=== PATIENT | female | born 1960 | race Caucasian/White ===

== ENCOUNTER → 2023-05-17 08:37 | Day surgery (SDC) | payer BC, SELFPAY ==
[2023-04-19 07:25] VITALS: BMI 36.0
--- NOTE | 2023-04-19 07:33 | HPS.HSE ---
Family Physician
-
Family Physician: Sarah Beth Brandt
Chief Complaint
-
Paroxysmal atrial fibrillation.
History of Present Illness
The patient is a 62-year-old female presenting today for paroxysmal atrial fibrillation. The patient reports palpitations and shortness of breath when in atrial fibrillation. She has undergone pulmonary vein isolation in March 2021 and
five previous cardioversions for her arrhythmia. The last cardioversion was attempted in March 2023. She is currently on pharmacological therapy with Amiodarone, Diltiazem, and Metoprolol. She is on Xarelto for oral anticoagulation. She notes
that she does not favor being on the pharmacological therapy for her atrial fibrillation buttermaker. She is interested in pursuing pulmonary vein isolation again for further arrhythmia management. She denies any current complaints today such as chest
pain, shortness of breath at rest, nausea, vomiting, diarrhea, lightheadedness, dizziness, cough, sore throat, or fever.
�
Medical History
Past Medical History
Past Medical History: Reports Other
Additional Past Medical History:
1. Paroxysmal atrial fibrillation, status post pulmonary vein isolation, 03/2021, and cardioversion x5; medical therapy with Amiodarone, Diltiazem, and Metoprolol, oral anticoagulation with Xarelto.
2. Nonsustained ventricular tachycardia 02/2020.
3. First-degree AV block.
4. Hypertrophic cardiomyopathy, greater than 2 cm wall thickness; status post ICD 11/2020.
5. Mild-moderate coronary artery calcifications.
6. Mild valvular disease.
7. Asthma, mild and intermittent.
8. Obstructive sleep apnea, compliant with CPAP.
9. GERD.
10. Hiatal hernia.
11. Remote duodenal ulcer.
12. Hypertrophic and adenomatous colon polyps.
13. Multilevel degenerative disc disease.
14. Osteoarthritis, status post bilateral total hip arthroplasty 2019.
15. Anxiety.
16. Depression.
17. Shingles 11/2015.
19. Obesity, BMI 36.0; status post bariatric surgery.
20. History of tobacco abuse.
21. Daily alcohol.
Past Surgical History: Reports Other
Additional Past Surgical History:
1. Pulmonary vein isolation.
2. Cardioversion x5.
3. ICD placement.
4. Left total hip arthroplasty.
5. Right total hip arthroplasty.
6. Left knee arthroscopy.
7. Bariatric surgery.
8. Right carpal tunnel release.
9. Uterine ablation.
10. Appendectomy.
Social History
Tobacco: Former Smoker (Former 1 pack per day cigarette smoker who quit tobacco products altogether 7 years ago. )
Alcohol: Daily (Reports, on average, 1-2 glasses of wine daily. )
Personal:
Living: Other (She lives with her in a 2 story home. )
Family History
Family History: Not pertinent
Allergies / Home Medications
Allergy/Medication List:
Home medications:
1. Acetaminophen 1300 mg p.o. three times a day as needed.
2. Amiodarone 200 mg p.o. daily at 2 PM.
3. Oyster shell calcium 1000 mg p.o. twice a day.
4. Citalopram 40 mg p.o. daily.
5. Devron 200 mg p.o. three times a day.
6. Diltiazem 360 mg p.o. daily at 2 PM.
7. Iron and Vitamin C 1 capsule p.o. daily at 2 PM.
8. Levothyroxine 100 mcg p.o. daily.
9. Metoprolol Succinate 100 mg p.o. twice a day.
10. Multivitamin 1 tablet p.o. three times a day.
11. Omeprazole 40 mg p.o. daily.
12. Xarelto 20 mg p.o. at bedtime.
Allergies: Bacitracin
Review of Systems
-
A 12 point ROS was completed and negative except as noted: Yes
Physical Exam
Vital Signs
Blood pressure 136.82. Heart rate 62. Respirations 18. Pulse ox 97% on room air.
Height 5 feet, 3 inches. Weight 92.2 kg. BMI 36.0.
Physical Exam
General: Well Developed, Well Nourished and No Apparent Distress
HEENT: NormoCephalic, Moist mucous membranes, Atraumatic and PERRLA
Respiratory: Clear
Cardiac: Irregular Rhythm
GI: Soft, Non Tender and Non Distended
Musculoskeletal: Normal Gait & Station
Skin: Warm and Dry
Neuro: AO x 3 and Nonfocal/grossly intact
Laboratory Results
-
DIAGNOSTIC STUDIES as of 04/19/2023: White blood cell count 6.7. Hemoglobin 13.9. Platelet count 283. PT 14.7. INR 1.12. Sodium 138. Potassium 4.5. BUN 15. Creatinine 0.7. Glucose 114. Calcium 9.4. Magnesium 2.1. AST 35. ALT 27. Albumin 4.1. Type
and screen O positive.
EKG 04/19/2023: Atrial paced rhythm. ST and T wave abnormality, consider lateral ischemia.
Chest CT 03/19/2021: Short-segment common vestibule for the left superior and inferior pulmonary veins, fairly commonly seen and considered normal variant. No evidence for left atrial thrombus.
�
Transesophageal echocardiogram 12/22/2020: Ejection fraction is 60%. Left ventricular hypertrophy, more prominent at the septum, with septal wall thickening measuring 1.8-2 cm and posterior wall 1.2 cm. No obvious LVOT tract obstruction. Normal left
atrial appendage. No thrombus detected in the left atrial appendage. Mildly thickened mitral valve with trivial to mild mitral regurgitation. Aortic valve is mildly thickened. Tricuspid valve with mild tricuspid regurgitation.
�
Stress echo 12/08/2015: No evidence of ischemia at 8 METS.
Impression/Plan
-
IMPRESSION/PLAN:
1. Paroxysmal atrial fibrillation: The patient is in need of pulmonary vein isolation with Dr. Bryan Smith on 05/17/2023. The benefits and risks of the procedure have been explained to the patient. The patient understands these risks and wishes to
proceed. She will not be required to undergo a pre-procedural transesophageal echocardiogram as she has been compliant with her home oral anticoagulation. She is aware that the last dose of her home Xarelto will be the night prior to her upcoming
procedure.
�
[2023-04-19 08:03] LABS: % Basophils 0.6 % (0-2); % Eosinophils 2.4 % (0-6); % Immature Granulocytes 0.9 % (0-0.5); % Lymphocytes 30.7 % (20.5-51.1); % Monocytes 7.6 % (1.7-9.3); % Neutrophils 57.8 % (42.2-75.2); Absolute Eosinophils 0.2 10^3/uL (0-0.7); Absolute Immature Granulocytes 0.1 10^3/uL (0-0.05); Absolute Lymphocytes 2.1 10^3/uL (1.2-3.4); Absolute Monocytes 0.5 10^3/uL (0.1-0.6); Absolute Neutrophils 3.9 10^3/uL (1.4-6.5); Hematocrit 39.6 % (37.0-47.0); Hemoglobin 13.9 g/dL (12.0-16.0); Mean Corp Hgb Conc. 35.1 g/dL (33.0-37.0); Mean Corpuscular Hgb 32.6 pg (27.0-31.0); Mean Corpuscular Volume 92.7 fL (81.0-99.0); Mean Platelet Volume 10.1 fL (7.4-10.4); Nucleated Red Blood Cells % 0 %; Platelet Count 283 10^3/uL (130-400); Red Blood Cell Count 4.27 10^6/uL (4.20-5.40); Red Cell Dist. Width 11.9 % (11.5-14.5); White Blood Cell Count 6.7 10^3/uL (4.8-10.8)
[2023-04-19 08:13] LABS: INR 1.12; PT 14.7 Sec (11.4-14.6)
[2023-04-19 08:19] LABS: ALT (SGPT) 27 U/L (0-35); AST (SGOT) 35 U/L (14-36); Albumin 4.1 g/dl (3.5-5.0); Alkaline Phosphatase 83 U/L (38-126); Blood Urea Nitrogen 15 mg/dl (7-17); Calcium 9.4 mg/dl (8.4-10.2); Carbon Dioxide 26 mmol/L (22-30); Chloride 101 mmol/L (98-107); Estimated Creatinine Clearance 90 ml/min; Glucose 114 mg/dl (70-99); Magnesium 2.1 mg/dl (1.6-2.3); Potassium 4.5 mmol/L (3.5-5.1); Sodium 138 mmol/L (135-145); Total Bilirubin 0.7 mg/dl (0.2-1.3); Total Protein 6.6 g/dl (6.3-8.2); eGFR > 60.00
[2023-05-17] VITALS (19 sets, daily range): BP systolic 85–132; BP diastolic 47–91
[2023-05-17 12:10] LABS: ACT-LR - POC 305 Seconds (116-155)
[2023-05-17 12:29] LABS: ACT-LR - POC 303 Seconds (116-155)
[2023-05-17 12:54] LABS: ACT-LR - POC 313 Seconds (116-155)
--- NOTE | 2023-05-17 14:01 | ITS.CL.ABL ---
Senior System Operator - Ablation
Ablation
Procedure Report:
ELECTROPHYSIOLOGY ABLATION STUDY
DATE:: 06/15/2023 REFERRING: Dr. Stevenson Hollis
INDICATION: Paroxysmal supraventricular tachycardia in the form of atrial fibrillation and atypical atrial flutter
HISTORY: See H and P. As above
ANTIARRHYTHMIC DRUG: Amiodarone
PRE-PROCEDURE RAÚL: No atrial thrombus
PRESENTING RHYTHM: Atypical atrial flutter confirmed to be a [id number] spinning around the left inferior pulmonary vein and transitioning to sitting around the right superior pulmonary vein utilizing each darek as a isthmus
'TIME-OUT': called and confirmed.
SEDATION/ANESTHESIA: provided via the anesthesia department using general anesthesia (LMA).
INTRAVENOUS/ARTERIAL ACCESS:
Right femoral venous - 8Fr
Left femoral venous - 8 Fr, 6 Fr
Ultrasound guidance for bilateral femoral vein access was utilized by me to obtain access with demonstration of normal anatomy
CHADS-VASC Score:
HAS-Bled Score
PROCEDURE:
1. A decapolar CS catheter was placed within the CS for mapping and pacing. This was also used as the reference catheter for the 3-D map. 2 separate tachycardia cycle length were noted with different CS activations. 390 ms with an eccentric
activation and for 10 ms with a proximal distal coronary sinus activation. The patient transitioned from 1 flutter to the next escalated below. Initial activation mapping of the 390 ms atrial flutter with the entire cycle length around the left
inferior pulmonary vein entrain from this region with the mitral isthmus, proximal coronary sinus, and left atrial posterior wall towards the right pulmonary veins out of the circuit. Entrainment demonstrated PPI equal to tachycardia cycle length
through the darek of the left veins and involving the inferior portion of posterior wall portion of left inferior pulmonary vein. Ablation at the anterior darek and through the inferior pulmonary vein of the left transition tachycardia to 410 ms
tachycardia to with the proximal to distal coronary sinus activation and there was a stable cycle length. Entrainment from the mitral isthmus, and area outside the left inferior pulmonary vein was now out of the circuit. Entrainment demonstrated
the second tachycardia to be encircling the right superior pulmonary vein with PPI equal to tachycardia cycle length and the entire cycle length with in and about the right severe pulmonary vein. Ablating at the darek of the right superior
pulmonary vein and the tachycardia terminated and the remainder of the posterior wall and right supra pulmonary veins were isolated. Entrance and exit block was confirmed in all 4 pulmonary veins and entrance
Was confirmed in the posterior wall of the left atrium.
2. The intracardiac ultrasound catheter was positioned in the RA to identify the FO for targeting of transseptal puncture, assist in identification of the pulmonary vein ostia, monitoring pre and post ablation pulmonary vein flow velocities,
monitoring for 'bubble' formation during RF application as a sign of thermal injury, and to monitor for pericardial effusion during mapping and ablation procedure. Left atrial size, LV ejection fraction, and pulmonary vein flows were monitored
pre and post ablation procedure. The other valves were inspected and found to be free of significant regurgitation or stenosis.
3. Half of the calculated heparin bolus was administered prior to the first transeptal puncture. Transseptal puncture was performed to diagnose RA and LA pressure so that safety of LA mapping and ablation could be further assessed, and to access
the left atrium and pulmonary veins for mapping and ablation. This entailed advancing an 10 [place] Agilis with dilator into the superior vena cava and withdrawing both (monitoring intracardiac ultrasound, fluoroscopy and tip pressure) with the tip
oriented toward the atrial septum. The fossa ovalis was engaged (indicated by sudden displacement of the sheath tip as well as tenting of the fossa seen on intracardiac ultrasound). Left atrial access required a pass with the [place] needle
extended. Left atrial catheter position was confirmed by pressure monitoring (RA mean pressure 8 mm Hg and LA mean presure 14 mm Hg), LA saturation (99%), as well as fluoroscopy. The sheath was advanced over the dilator and positioned in the left
atrium. This procedure was repeated for the Agilis sheath. The remainder of the calculated heparin bolus was administered and heparin was
infused to maintain ACT at 300 -350 seconds throughout the case.
4. RA pacing was performed via the proximal decapolar poles and LA pacing was performed via the distal decapolr poles.
5. A quadrapolar catheter was first positioned at the His position for His Bundle recording which was tagged via the 3-D Navex sytem, and then passed to the RVA for RV pacing and recording.
6. The 4 mm tactic cath and multipolar catheter placed in each of the LIPV, LSPV, RSPV and the RIPV. There was chronic reconnection at the darek and the anterior aspect of the left inferior pulmonary vein and the septal darek of the right
superior pulmonary vein. Each darek was utilized as an isthmus for separate flutters 1 circumferential on the left inferior pulmonary vein and 1 circumferential around the right supra pulmonary vein with cycle length 390 ms for the left inferior
pulmonary vein and for 10 ms for the right superior pulmonary vein.
7. Next, a 3-D map was created using Navex. A 3-D reconstructed CT image was compared to the 3-D Navex map to assist in anatomic interpretation, mapping and ablation. The CT image and the NavX image were fused.
8. The pulmonary veins at the left inferior pulmonary vein and right supra pulmonary vein were isolated each darek at 30 W, 42 degrees, 10 to 15-second lesions at a 10 to 20 g force. Extrapulmonary vein lesions for atrial fibrillation were
delivered outside the left inferior pulmonary vein on the posterior wall as well as at the base of the ligament of Wilbert. We then targeted 2 separate flutters spitting through the posterior wall and to reach darek as delineated above with
termination of the second atrial flutter cycling for 10 ms at the darek of the right superior pulmonary vein. This was performed after transition from the initial atrial flutter spinning around the left inferior pulmonary veins. After entrance
next block was confirmed in the posterior wall plus all 4 pulmonary veins EP study did not demonstrate any inducible tachyarrhythmias.
9. Normal sinus node and AV martha function were noted. The patient's defibrillator was turned off for the procedure and then turned back to on with stable and consistent device settings at AAIR�DDDR 50-130 beats a minute and device therapies in
the VF and VT zones were turned back on.
TOTAL FLOURO TIME: 17 minutes 137 mGy
TOTAL RF DURATION: 22 minutes
REVERSAL OF HEPARIN: 35 mg of protamine, slow IV administration
COMPLICATIONS:
None
Intracardiac US shows no pericardial effusion post ablation.
SUMMARY:
Complex left atrial mapping and ablation.
Reisolation of the left inferior pulmonary vein and right supra pulmonary veins as above. Isolation of the left atrial posterior wall as above. Targeting of 2 separate atrial flutters 1 encircling the left inferior pulmonary vein through the
darek and 1 encircling the right superior pulmonary vein through the darek. Tachycardia 1 through the left inferior pulmonary vein transitioned to tachycardia to after isolation of the left inferior pulmonary vein and tachycardia to was
terminated with ablation and isolation of the right superior pulmonary vein.
RECOMMENDATIONS:
1. Admit to monitored bed.
2. Resume anticoagulation
3. Vascade system was performed with closure and out of bed 2 hours
4. Consider same-day discharge
Copy to: Dr. Stevenson Hollis
[2023-05-17] MEDS: ANESTHETIC LOZENGE 1 LOZENGE PO (14:28)
--- NOTE | 2023-05-17 16:25 | W.PN.UPDATE ---
Update Note
Progress Note Update
Pt seen post PVI. Bilat vascade closure with no HT/bleeding, non tender. OOB to chair/bathroom. Post EKG NSR w/1st deg AVB, no acute changes. Resume Xarelto tonight. Discontinue amiodarone and decreased diltiazem to 240mg daily, continue toprol as
before. Followup with Dr. Smith as scheduled. Home today if groin site/tele remain stable.
== END | disposition home or self-care (01) ==
LOC: CATH 08:37
PROVIDERS: ATTENDING PHYSICIAN Internal Medicine Cardiovascular Disease; FAMILY PHYSICIAN Internal Medicine
DX: I48.0 Paroxysmal atrial fibrillation (principal); Z79.01 Long term (current) use of anticoagulants; R00.2 Palpitations; R06.02 Shortness of breath; I44.0 Atrioventricular block, first degree; I42.2 Other hypertrophic cardiomyopathy; I25.84 Coronary atherosclerosis due to calcified coronary lesion; I25.10 Atherosclerotic heart disease of native coronary artery without angina pectoris; J45.909 Unspecified asthma, uncomplicated; G47.33 Obstructive sleep apnea (adult) (pediatric); K21.9 Gastro-esophageal reflux disease without esophagitis; K44.9 Diaphragmatic hernia without obstruction or gangrene; Z87.11 Personal history of peptic ulcer disease; Z86.010 Personal history of colon polyps; M19.90 Unspecified osteoarthritis, unspecified site; F32.A Depression, unspecified; F41.9 Anxiety disorder, unspecified; E66.9 Obesity, unspecified; Z68.36 Body mass index [BMI] 36.0-36.9, adult; Z87.891 Personal history of nicotine dependence; Z95.810 Presence of automatic (implantable) cardiac defibrillator; Z98.84 Bariatric surgery status
CPT/HCPCS: C1732; C1894; C1730; C1769; C1766; C2630; C1892; C1759; 36415; 76937; 80053; 83735; 85025; 85347; 85610; 86850; 86900; 86901; 93005; 93655; 93656; C1760

== ENCOUNTER → 2023-05-23 09:12 | Outpatient (REF) | payer BC, SELFPAY ==
[2023-05-23 09:56] LABS: % Basophils 0.4 % (0-2); % Eosinophils 1.6 % (0-6); % Immature Granulocytes 0.8 % (0-0.5); % Lymphocytes 19.7 % (20.5-51.1); % Monocytes 8.6 % (1.7-9.3); % Neutrophils 68.9 % (42.2-75.2); Absolute Eosinophils 0.1 10^3/uL (0-0.7); Absolute Immature Granulocytes 0.1 10^3/uL (0-0.05); Absolute Lymphocytes 1.5 10^3/uL (1.2-3.4); Absolute Monocytes 0.7 10^3/uL (0.1-0.6); Absolute Neutrophils 5.3 10^3/uL (1.4-6.5); Hematocrit 37.8 % (37.0-47.0); Hemoglobin 13.1 g/dL (12.0-16.0); Mean Corp Hgb Conc. 34.7 g/dL (33.0-37.0); Mean Corpuscular Hgb 32.3 pg (27.0-31.0); Mean Corpuscular Volume 93.3 fL (81.0-99.0); Mean Platelet Volume 10.4 fL (7.4-10.4); Nucleated Red Blood Cells % 0 %; Platelet Count 293 10^3/uL (130-400); Red Blood Cell Count 4.05 10^6/uL (4.20-5.40); White Blood Cell Count 7.7 10^3/uL (4.8-10.8)
[2023-05-23 10:31] LABS: ALT (SGPT) 21 U/L (0-35); AST (SGOT) 29 U/L (14-36); Alkaline Phosphatase 82 U/L (38-126); Blood Urea Nitrogen 12 mg/dl (7-17); Calcium 9.1 mg/dl (8.4-10.2); Carbon Dioxide 27 mmol/L (22-30); Chloride 102 mmol/L (98-107); Direct Bilirubin 0.5 mg/dl (0.0-0.4); Glucose 113 mg/dl (70-99); HDL Cholesterol 78 mg/dl; Iron 143 ug/dl (37-170); LDL Cholesterol, Calculated 86 mg/dl; Magnesium 2.1 mg/dl (1.6-2.3); Sodium 135 mmol/L (135-145); Total Cholesterol 181 mg/dl (50-199); Total Protein 6.5 g/dl (6.3-8.2); Triglyceride 85 mg/dl (10-149); Very Low Density Lipoprotein 17 mg/dl (0-30); eGFR > 60.00
[2023-05-23 10:49] LABS: Vitamin D, 25-OH*** 52.1 ng/mL (30-80)
[2023-05-23 10:53] LABS: Intact PTH 135.5 pg/ml (13.6-85.8)
[2023-05-23 11:38] LABS: Folate > 20.0 ng/ml (2.76-20); Vitamin B12 > 1000 pg/ml (239-931)
[2023-05-25 08:51] LABS: Zinc 46.3 ug/dL (60.0-120.0)
[2023-05-26 11:09] LABS: Alpha-Tocopherol 10.4 mg/L (5.5-18.0); Gamma-Tocopherol 0.5 mg/L (0.0-6.0); Retinyl Palmitate 0.04 mg/L (0.00-0.10); Vitamin A (Retinol) 0.85 mg/L (0.30-1.20); Xitamin A Interpretation Normal
[2023-05-26 16:28] LABS: Vitamin B1, Whole Blood 213 nmol/L (70-180)
== END ==
LOC: REG 09:12
PROVIDERS: ATTENDING PHYSICIAN Nurse Practitioner; FAMILY PHYSICIAN Internal Medicine
DX: E66.9 Obesity, unspecified (principal); K90.49 Malabsorption due to intolerance, not elsewhere classified; Z98.84 Bariatric surgery status
CPT/HCPCS: 36415; 80053; 80061; 82248; 82306; 82607; 82728; 82746; 83540; 83735; 83970; 84425; 84446; 84590; 84630; 85025

== ENCOUNTER → 2023-05-23 13:36 | Outpatient (REF) | payer BC, SELFPAY | LOC: RAD 13:36 | PROVIDERS: ATTENDING PHYSICIAN Internal Medicine Cardiovascular Disease; FAMILY PHYSICIAN Internal Medicine | DX: S30.1XXA Contusion of abdominal wall, initial encounter (principal); I72.9 Aneurysm of unspecified site | CPT/HCPCS: 93926 ==

== ENCOUNTER → 2023-06-21 08:33 | Outpatient (REF) | payer BC, SELFPAY ==
[2023-06-21 14:09] LABS: tTG IgA Antibody 4.5 EU/ml (0-19); tTG IgG Antibody 11.3 EU/ml (0-19)
[2023-06-22 05:46] LABS: IgA 132 mg/dl (70-400)
[2023-06-22 15:13] LABS: H. pylori Breath Test Negative (Negative)
[2023-06-23 13:27] LABS: Fat, Fecal - Neutral Normal (Normal); Fat, Fecal - Split Increased (Normal)
[2023-06-23 21:35] LABS: Endomysial IgA Antibody Titer <1:10 (<1:10)
[2023-06-24 01:57] LABS: H. pylori Antigen, Fecal Negative (Negative)
== END ==
LOC: REG 08:33
PROVIDERS: ATTENDING PHYSICIAN Internal Medicine Gastroenterology; FAMILY PHYSICIAN Internal Medicine
DX: R11.2 Nausea with vomiting, unspecified (principal)
CPT/HCPCS: 36415; 82705; 82784; 83013; 83516; 86231; 87338; 89055

== ENCOUNTER → 2023-07-12 06:55 | Outpatient (REF) | payer BC, SELFPAY | LOC: RAD 06:55 | PROVIDERS: ATTENDING PHYSICIAN Internal Medicine Gastroenterology; FAMILY PHYSICIAN Internal Medicine | DX: K76.0 Fatty (change of) liver, not elsewhere classified (principal) | CPT/HCPCS: 76700 ==

== ENCOUNTER → 2023-07-14 06:31 | Day surgery (SDC) | payer BC, SELFPAY | LOC: GI 06:31 | PROVIDERS: ATTENDING PHYSICIAN Internal Medicine Gastroenterology; FAMILY PHYSICIAN Internal Medicine | DX: Z86.010 Personal history of colon polyps (principal); K52.9 Noninfective gastroenteritis and colitis, unspecified; K57.30 Diverticulosis of large intestine without perforation or abscess without bleeding; D12.3 Benign neoplasm of transverse colon; D12.7 Benign neoplasm of rectosigmoid junction; R10.13 Epigastric pain; K44.9 Diaphragmatic hernia without obstruction or gangrene; K31.89 Other diseases of stomach and duodenum; Z98.84 Bariatric surgery status; R11.0 Nausea; K29.50 Unspecified chronic gastritis without bleeding; K22.89 Other specified disease of esophagus | CPT/HCPCS: 45385; 45380; 43239; 88305; 88342 ==

== ENCOUNTER 2023-08-11 06:11 | Day surgery (SDC) | payer BC, SELFPAY ==
[2023-08-11] VITALS (13 sets, daily range): BP systolic 117–146; BP diastolic 66–90; BMI 32.8
[2023-08-11] MEDS: TYLENOL 1000 MG PO (08:21)
[2023-08-11] MEDS: NORMOSOL-R 1000 IV (08:22)
--- NOTE | 2023-08-11 09:45 | W.SUR.PREOP ---
Pre-Operative Surgical Note
-
I have examined this patient prior to the performance of the scheduled procedure.
The patient's condition is unchanged from the time of the current History and
Physical and the patient is able to undergo the scheduled procedure.
--- NOTE | 2023-08-11 11:12 | W.IMMPOSTOP ---
Addendum entered and electronically signed by Roc Fried MD 08/11/23 11:25:
#[id number]
Original Note:
Surgical Immed Post Op Note
-
Primary Surgeon: Corky
Assisting Surgeon: Katerina Chapman PA-C
Pre-op Diagnosis: Chronic calculus cholecystitis
Post-op Diagnosis: Chronic calculus cholecystitis
Procedure Performed: Laparoscopic cholecystectomy with intraoperative cholangiogram
Anesthesia Type: GETA +0.25% Marcaine
Specimen / Cultures: Gallbladder
Estimated Blood Loss: 4 mL
Complications: None immediate
Operative Findings: Physiologically distended gallbladder, few filmy adhesions. Cystic duct identified and controlled with clips as well as main anterior cystic artery and a posterior cystic artery branch traveling along the posterior wall of the
gallbladder. Intraoperative cholangiogram normal, aberrant right posterior hepatic duct seen on cholangiography. No adhesions encountered from history of laparoscopic duodenal switch bariatric surgery
The assistance of Katerina Chapman PA-C was required due to the complexity of the procedure. During the procedure Katerina Chapman PA-C assisted with retraction, cholecystectomy, and closure of the wound.
updated via phone call postoperatively
[2023-08-11] MEDS: ZOFRAN 4 MG IV (11:37)
[2023-08-11] MEDS: COMPAZINE 5 MG IV (11:52)
== END 2023-08-11 14:33 | disposition home or self-care (01) ==
LOC: SDS 06:11
PROVIDERS: ATTENDING PHYSICIAN Surgery
DX: K80.10 Calculus of gallbladder with chronic cholecystitis without obstruction (principal)
CPT/HCPCS: 47563; 88304; 74300; 76000; A4300

== ENCOUNTER 2023-08-13 16:23 | Inpatient (IN) | payer BC, SELFPAY ==
[2023-08-13 11:37] VITALS: BP 181/102
[2023-08-13 12:09] LABS: % Basophils 0.1 % (0-2); % Lymphocytes 8.2 % (20.5-51.1); % Monocytes 8.3 % (1.7-9.3); % Neutrophils 82.4 % (42.2-75.2); Absolute Immature Granulocytes 0.1 10^3/uL (0-0.05); Absolute Neutrophils 9.9 10^3/uL (1.4-6.5); Hematocrit 36.2 % (37.0-47.0); Hemoglobin 12.5 g/dL (12.0-16.0); Mean Corp Hgb Conc. 34.5 g/dL (33.0-37.0); Mean Corpuscular Hgb 32.4 pg (27.0-31.0); Mean Corpuscular Volume 93.8 fL (81.0-99.0); Mean Platelet Volume 10.8 fL (7.4-10.4); Nucleated Red Blood Cells % 0 %; Platelet Count 221 10^3/uL (130-400); Red Blood Cell Count 3.86 10^6/uL (4.20-5.40); Red Cell Dist. Width 11.7 % (11.5-14.5)
[2023-08-13 12:17] LABS: ALT (SGPT) 32 U/L (0-35); AST (SGOT) 37 U/L (14-36); Albumin 4.1 g/dl (3.5-5.0); Alkaline Phosphatase 74 U/L (38-126); Blood Urea Nitrogen 13 mg/dl (7-17); Calcium 9.4 mg/dl (8.4-10.2); Carbon Dioxide 28 mmol/L (22-30); Chloride 100 mmol/L (98-107); Glucose 162 mg/dl (70-99); Sodium 133 mmol/L (135-145); Total Bilirubin 1.1 mg/dl (0.2-1.3); Total Protein 6.5 g/dl (6.3-8.2); eGFR > 60.00
[2023-08-13 12:49] VITALS: BP 165/96
--- NOTE | 2023-08-13 12:51 | ED.GENMED ---
History of Present Illness
General
Chief Complaint: Breathing Problem
Source: patient and spouse
Time Seen by Provider: 08/13/23 12:37
Travel History
Have you had any contact with someone who has COVID-19?: No
Do you have any symptoms of coronavirus? Fever > 100 degrees, chills, cough, shortness of breath, sore throat, loss of taste or smell, muscle aches, or headache?: No
History of Present Illness
History of Present Illness:
62-year-old female with past medical history of atrial fibrillation, hypertrophic cardiomyopathy, hypertension, status post elective cholecystectomy 2 days ago presenting to the emergency department for evaluation of persistent nausea and vomiting,
shortness of breath, cough with blood-tinged sputum over the last 24 to 36 hours. Patient reports that immediately following surgery following extubation she was persistently nauseous and vomiting which has not gotten any better over the last 48
hours despite oral Compazine at home. Since yesterday she started to feel short of breath with the coughing and blood-tinged sputum which she thought was may be just related to being intubated. She is unaware of any fevers but is denying any
chills, rigors, chest pain, palpitations, diaphoresis, lower extremity edema. Patient is on Xarelto due to a history of atrial fibrillation stopped taking this as of Monday for the surgery and is not supposed to resume the medication until
tomorrow.
Past History
Past History
ED Past Medical History: Arrthythmia, Asthma, CHF, Hypothyroidism and Psychiatric
ED Past Surgical History: Appendectomy, Cardiac, Cholecystectomy, Gynecological and Other
Social History
Tobacco: Former smoker
Alcohol: Former
Drug: None
Personal:
Living: with family
Employment: Employed
Family History
Family History: Negative Sudden
Review of Systems
Review of Systems
All Other Systems: ROS reviewed and negative except as documented in HPI and ROS
Phy Exam
Physical Exam
Physical Exam:
GENERAL: Alert , in no apparent distress
EYE: conjunctiva clear
NECK: Supple
ENT: o/p clr, mmm.
CARDIAC: Regular rate and rhythm, no murmur
LUNGS: Clear breath sounds bilaterally, no acute respiratory distress, no wheezes/rales/rhonchi
Abdomen: Soft, tender overlying the surgical incisions but without any overlying signs of infection
NEUROLOGICAL: Alert and oriented
SKIN: Warm and dry, skin intact.
MUSCULOSKELETAL: well perfused. no edema
PSYCH: Normal and appropriate interaction.
Scores
Heart Failure Risk
Heart Failure Risk Score: Not Applicable
Heart Score for Chest Pain Patients
STEMI patient?: Not applicable
Withdrawal Assessment of Alcohol
Withdrawal Assessment Completed?: Not applicable
Course
Orders/Labs/Results
Orders:
Orders
08/13/23 11:42
Electrocardiogram (*1) Urgent
Reason for Study: Other
Other Reason for Exam: Respiratory Distress
EKG- Treatment ONCE
CR Chest - 2 Views Urgent
Comment:
Reason For Exam: respiratory distress
08/13/23 11:53
Complete Blood Count/With Diff Urgent
Comprehensive Metabolic Panel Urgent
Troponin I Urgent
08/13/23 12:49
0.9% Sodium Chloride 1000 ml [Nss] 1,000 ml IV BOLUS
Ondansetron Injectable [Zofran] 4 mg IV NOW STA
08/13/23 12:50
CT Chest Pe Study Urgent
Comment:
Reason For Exam: cough, recent surgery, SOB
08/13/23 14:20
Azithromycin [Zithromax] 500 mg PO NOW STA
CefTRIAXone [Rocephin] 1,000 mg IV NOW STA
MetroNIDAZOLE 500 MG/100 ML [Flagyl 500 mg] 100 ml IV NOW
08/13/23 15:18
Respiratory Culture/Gram Stain Urgent
JAMES Source: Sputum
Specimen Description:
08/13/23 15:30
Blood Culture Q30M
JAMES Source: Blood/Venous
Specimen Description:
08/13/23 16:00
Blood Culture Q30M
JAMES Source: Blood/Venous
Specimen Description:
Abnormal Lab Results
08/13/23
11:53
WBC 12.0 H 10^3/uL
(4.8-10.8)
RBC 3.86 L 10^6/uL
(4.20-5.40)
Hct 36.2 L %
(37.0-47.0)
MCH 32.4 H pg
(27.0-31.0)
MPV 10.8 H fL
(7.4-10.4)
Abs Immat Gran (auto) 0.1 H 10^3/uL
(0-0.05)
Absolute Neuts (auto) 9.9 H 10^3/uL
(1.4-6.5)
Absolute Lymphs (auto) 1.0 L 10^3/uL
(1.2-3.4)
Absolute Monos (auto) 1.0 H 10^3/uL
(0.1-0.6)
Immature Gran % 1.0 H %
(0-0.5)
Neutrophils % 82.4 H %
(42.2-75.2)
Lymphocytes % 8.2 L %
(20.5-51.1)
Sodium 133 L mmol/L
(135-145)
Creatinine 0.5 L mg/dL
(0.6-1.0)
Glucose 162 H mg/dl
(70-99)
AST 37 H U/L
(14-36)
Troponin I 0.070 H* ng/ml
08/13/23 11:53
08/13/23 11:53
Vital Signs
Initial and Last Documented VS:
Initial Vital Signs
Temp Pulse Resp BP Pulse Ox
98.7 F 72 14 181/102 93
08/13/23 11:37 08/13/23 11:37 08/13/23 11:37 08/13/23 11:37 08/13/23 11:37
Last Documented Vital Signs
Temp Pulse Resp BP Pulse Ox
98.7 F 67 19 189/106 96
08/13/23 11:37 08/13/23 15:10 08/13/23 15:10 08/13/23 15:10 08/13/23 15:10
Resident Programs Assistant consulted with Physician
Resident Programs Assistant consulted with physician?: Yes
Name of Physician Consulted: Brock
MDM/Problems Addressed
Differential Diagnosis Includes:
PE, pneumonia, aspiration, atypical ACS
MDM/Problems Addressed:
62-year-old female presenting to the emergency department for evaluation of shortness of breath over the last 24 hours accompanied with some blood-tinged sputum. Patient has been vomiting since her surgery. I do have some concern for aspiration
but there is also concern for PE given she is supposed to be anticoagulated due to her history of A-fib and has been off this medication since Monday. Labs, chest x-ray and EKG were initiated in triage. There is a mild leukocytosis with a
leftward shift. This could certainly be related to surgery however infection as well. Troponin is mildly elevated to 0.070 without any ischemic changes on EKG. Chest x-ray does show suspicious right-sided pneumonia. Given patient's risk factors
for PE will obtain a CTA of the chest to rule out PE. Will treat patient's nausea with IV Zofran. Reassessment following
*Radiology
Radiology exam reviewed: radiology read reviewed
*Pulse Oximetry
Patient hypoxic: yes
*EKG
Interpreted by ED Provider?: Yes
Heart Rate: 71
Rate: normal
Rhythm: sinus
[place]: normal axis
Ischemia: T-wave inversion (V4 through V6 and aVL)
*Wood Tank Erector Interpretation
Rate: normal
Rhythm: sinus
*Critical Care Note
Total Time (30-74mins, 75-104mins- exclusive of procedures): Not Applicable
Data Reviewed
Review of Other/Old Records Reveals: Records and Operative Reports
Patient Management
Discussion with other providers: Hospitalist
Escalation/DeEscalation of care consider admission/obs:
Patient's chest CT shows no evidence of pulmonary embolism. There is however severe right-sided pneumonia with tiny bilateral pleural effusions. Again given the patient's vomiting postoperatively I do's be a component of aspiration pneumonia so
will cover with Flagyl in addition to typical community-acquired pneumonia organisms. Patient currently feeling better on 2 L via nasal cannula and she remains stable. Hospitalist team is aware and accepts for continued evaluation
ED Attending Note
-
Portions of this chart may have been created with voice recognition software.� Occasional wrong word or��sound alike� substitutions may have occurred due to the inherent limitations of voice recognition software.
Discharge Plan
Departure
Patient Disposition: Admit
Date of Disposition: 08/13/23
Time of Disposition: 14:24
Presentation/result/management discussed w/ accepting MD/DO: Hospitalist
Discharge Problem:
Pneumonia
Prescriptions:
No Action
citalopram 40 MG tablet
40 mg PO DAILY
metoprolol succinate 100 MG tablet extended release 24 hr
100 mg PO BID
levothyroxine 100 mcg Tablet
100 mcg PO DAILY
Xarelto 20 MG tablet
20 mg PO QPM
Hold Instructions: Resume on 08/14/23. Hold for 72 hours postop. Okay to resume Xarelto Monday morning.
Patient Comments:
08/13/2023, currently on hold; pt. will resume taking on Monday (08/14/2023).
pantoprazole [Protonix] 40 mg Tablet,Delayed Release (Dr/Ec)
40 mg PO BID
acetaminophen [Tylenol Extra Strength] 500 mg tablet
1,000 mg PO Q6HPRN PRN (Reason: mild pain) Qty: 1 0RF
prochlorperazine maleate [Compazine] 10 mg tablet
10 mg PO Q8H PRN (Reason: nausea and vomiting) Qty: 14 0RF
diltiazem HCl [DILT-XR] 240 mg Capsule,Ext.Rel 24h Degradable
240 mg PO DAILY@1400
Interventions
Interventions:
*Risk Screen - Suicide Last Done: 08/13/23 11:37
*General Assessment Last Done: 08/13/23 11:37
*Neglect/Abuse Screening Last Done: 08/13/23 11:37
*ED COVID-19 Vaccine History Last Done: 08/13/23 11:37
ED- Cardiac Assessment Last Done: 08/13/23 12:50
ED- Pulmonary Assessment Last Done: 08/13/23 12:50
Discharge Date and Time
Print Language: INDONESIAN
[2023-08-13] MEDS: ZOFRAN 4 MG IV ×2 (12:56→18:57)
[2023-08-13] MEDS: NSS 1000 IV (12:57)
[2023-08-13 14:16] VITALS: BP 174/95
[2023-08-13] MEDS: ROCEPHIN 1000 MG IV (14:49)
[2023-08-13] MEDS: ZITHROMAX 500 MG PO (14:49)
[2023-08-13] MEDS: FLAGYL 500 MG 100 IV (14:50)
[2023-08-13 15:10] VITALS: BP 189/106
--- NOTE | 2023-08-13 15:13 | HPS.HSE ---
Family Physician
-
Family Physician: Sarah Beth Brandt
Chief Complaint
-
Shortness of breath
History of Present Illness
62-year-old female who had an elective cholecystectomy 2 days ago presented to hospital with nausea vomiting, shortness of breath cough and blood-tinged sputum for the past 2 days. Patient stated that she is been nauseous after extubation and has
not gotten better. No fevers patient was on Xarelto for atrial fibrillation and she has not restarted. Patient stated that she has had difficulty swallowing after surgery and slowly getting better. No new difficulty but she has been having nausea
and vomiting
Medical History
Past Medical History
Past Medical History: Reports Other
Additional Past Medical History:
Asthma, sleep apnea, atrial fibrillation, atrial flutter, cardiomyopathy, hypertension, history of VT, GERD, hiatal hernia, arthritis/DJD, hypothyroidism, elevated parathyroid levels, impaired vision, anemia, anxiety and depression
Past Surgical History: Reports Other
Additional Past Surgical History:
Appendectomy, uterine artery ablation, carpal tunnel surgery on the right, left arthroscopy for torn meniscus, gastric sleeve and duodenal switch, bilateral hip replacement, ICD, ablations and cardioversions, cholecystectomy
Social History
Tobacco: Former Smoker
Alcohol: Daily (2 glasses of wine. Has not since surgery)
Personal:
Living: With Family
Family History
Family History: CAD (parents)
Allergies / Home Medications
Allergies reflects when Allergies were last updated in [facility].
Home Medications with original date entered in [facility]
Allergy/Medication List:
Allergies
Allergy/AdvReac Type Severity Reaction Status Date / Time
bacitracin Allergy POSITIVE Verified 08/11/23 08:01
REACTION
ON ALLERGY
TEST
Home Medications
citalopram 40 mg tablet 40 mg PO DAILY Mental Health/Anxiety 12/21/20
metoprolol succinate 100 mg tablet,extended release 24 hr 100 mg PO BID 01/29/21
levothyroxine 100 mcg tablet 100 mcg PO DAILY 03/13/23
rivaroxaban 20 mg tablet (Xarelto) 20 mg PO QPM Blood clot prevention/tx 03/13/23
pantoprazole 40 mg tablet,delayed release (Protonix) 40 mg PO BID 08/07/23
acetaminophen 500 mg tablet (Tylenol Extra Strength) 1,000 mg (2 x 500 mg) PO Q6HPRN PRN mild pain #1 tab 08/11/23
prochlorperazine maleate 10 mg tablet (Compazine) 10 mg PO Q8H PRN nausea and vomiting #14 tabs 08/12/23
diltiazem HCl 240 mg capsule,extended release 24 hr, controlled (DILT-XR) 240 mg PO DAILY@1400 08/13/23
Review of Systems
-
A 12 point ROS was completed and negative except as noted: Yes
Respiratory: Reports Cough and Trouble Breathing
Cardiac: Denies Chest Pain
Abdomen/GI: Reports Nausea and Vomiting; Denies Abdominal Pain
Physical Exam
Vital Signs
Vital Signs
Temp Pulse Resp BP Pulse Ox
98.7 F 67 19 189/106 96
08/13/23 11:37 08/13/23 15:10 08/13/23 15:10 08/13/23 15:10 08/13/23 15:10
Physical Exam
General: No Apparent Distress
Respiratory: Rales (right)
Cardiac: S1/S2 and Regular Rhythm
GI: Soft and Other (lap wounds stable)
Neuro: Nonfocal/grossly intact
Psych: Intact Judgment/Insight
Laboratory Results
-
08/13/23 11:53
08/13/23 11:53
Laboratory Results
Total Bilirubin 1.1 mg/dl (0.2-1.3) 08/13/23 11:53
AST 37 U/L (14-36) H 05/12/24 11:53
ALT 32 U/L (0-35) 08/13/23 11:53
Alkaline Phosphatase 74 U/L (38-126) 08/13/23 11:53
Troponin I 0.070 ng/ml H* 08/13/23 11:53
Data Reviewed
-
CT Scan: Image Personally Visualized and interpreted (CT of the chest-no PE. Right-sided pneumonia, pleural effusions right more than left)
Medical Tests (Nuc Med, Echo, EKG etc): Image Personally Visualized and interpreted (EKG-sinus rhythm with premature supraventricular complexes, ST-T abnormality lateral ischemia)
Impression/Plan
-
IMPRESSION/PLAN:
# Acute hypoxic respiratory insufficiency
Likely secondary to aspiration pneumonia
Secondary to recent surgery and intubation
Zosyn, mucolytic's
Check sputum cultures if possible
Blood cultures
Oxygen supplementation
Anti Nausea meds
# Cholecystectomy on 08/11/[address] Fried
With nausea and vomiting -Antinausea meds
consult surgery
Symptomatic treatment
# Borderline troponin-follow on telemetry
Continue to trend
# Paroxysmal atrial fibrillation/a flutter with history of ablation in the past
Continue diltiazem to 40 mg daily, metoprolol 1 mg twice daily
Xarelto to be held until tomorrow per postop instructions
# Cardiomyopathy with defibrillator placement
# Hypertension-CCB and BB
# Mild hyponatremia-follow
# History of gastric sleeve surgery and duodenal switch 2018
# Hypothyroidism-continue Synthroid
# Elevated parathormone levels
# Asthma-NOS
# GERD/hiatal hernia-Protonix
# Anxiety depression-continue Celexa
# Arthritis/DJD
# DVT prophylaxis-Lovenox
# CODE STATUS-Full
D/W at bed side
[2023-08-13] MEDS: CARDIZEM CD 240 MG PO (16:24)
[2023-08-13 18:03] VITALS: BMI 33.8
[2023-08-13] MEDS: ROBITUSSIN 200 MG PO ×2 (18:37→21:15)
[2023-08-13] MEDS: LOVENOX 40 MG SC (18:38)
[2023-08-13] MEDS: ZOSYN 50 IV (18:39)
[2023-08-13 18:55] VITALS: BMI 33.8
[2023-08-13 19:54] VITALS: BP 166/105
[2023-08-13] MEDS: PROTONIX 40 MG PO (20:06)
[2023-08-13] MEDS: TOPROL XL 100 MG PO (20:06)
[2023-08-13] MEDS: VITAMIN B1 100 MG PO (20:06)
[2023-08-13 20:13] LABS: Troponin I 0.057 ng/ml
[2023-08-13] MEDS: XANAX 0.25 MG PO (20:26)
[2023-08-13 23:50] VITALS: BP 161/95
[2023-08-14] MEDS: ZOSYN 50 IV ×5 (00:14→23:21)
[2023-08-14] MEDS: ZOFRAN 4 MG IV ×2 (00:59→07:05)
[2023-08-14] MEDS: TYLENOL 1000 MG PO ×2 (01:12→21:37)
[2023-08-14 02:12] LABS: Troponin I 0.046 ng/ml
[2023-08-14 03:49] VITALS: BP 168/89
[2023-08-14] MEDS: SYNTHROID 100 MCG PO (05:16)
[2023-08-14 07:38] VITALS: BP 168/101
[2023-08-14 08:00] LABS: Hematocrit 33.9 % (37.0-47.0); Hemoglobin 11.8 g/dL (12.0-16.0); Mean Corp Hgb Conc. 34.8 g/dL (33.0-37.0); Mean Corpuscular Hgb 32.4 pg (27.0-31.0); Mean Corpuscular Volume 93.1 fL (81.0-99.0); Mean Platelet Volume 10.7 fL (7.4-10.4); Platelet Count 185 10^3/uL (130-400); Red Blood Cell Count 3.64 10^6/uL (4.20-5.40); Red Cell Dist. Width 11.5 % (11.5-14.5); White Blood Cell Count 10.6 10^3/uL (4.8-10.8)
[2023-08-14 08:21] LABS: Blood Urea Nitrogen 10 mg/dl (7-17); Calcium 9.2 mg/dl (8.4-10.2); Carbon Dioxide 27 mmol/L (22-30); Chloride 98 mmol/L (98-107); Estimated Creatinine Clearance 105 ml/min; Glucose 138 mg/dl (70-99); Potassium 3.7 mmol/L (3.5-5.1); Sodium 134 mmol/L (135-145); eGFR > 60.00
[2023-08-14 08:23] LABS: Troponin I 0.034 ng/ml
[2023-08-14] MEDS: CELEXA 40 MG PO (08:50)
[2023-08-14] MEDS: PROTONIX 40 MG PO ×2 (08:50→20:32)
[2023-08-14] MEDS: TOPROL XL 100 MG PO ×2 (08:51→20:32)
[2023-08-14] MEDS: ROBITUSSIN 200 MG PO ×4 (08:51→21:37)
[2023-08-14] MEDS: VITAMIN B1 100 MG PO ×2 (08:51→20:32)
--- NOTE | 2023-08-14 10:41 | CON.GS ---
Addendum entered and electronically signed by Jon Enriquez MD 08/14/23 15:31:
I saw and examined the patient independently.
The Attacher's note was reviewed and I agree with the note, assessment and plan except where noted below.
Comment: This is a 62-year-old female with a history of obesity (BMI 33), A-fib on Xarelto, gastric sleeve with duodenal switch, and recent laparoscopic cholecystectomy on 08/11/[address] Fried for chronic cholecystitis. Intraoperative
cholangiogram notable for the isolated right posterior hepatic duct coming directly off of the common hepatic. This was identified and preserved. She states that since surgery she had essentially intractable nausea as well as dry heaving (although
this is improved slightly over time, particularly with Compazine which was started over the weekend). She then developed acute shortness of breath yesterday and coughing up blood tinged sputum which prompted her to visit our emergency department
for further workup. She was noted to be hypoxic and started on oxygen. A CT scan of the chest demonstrated a large amount of groundglass patchy opacities in all lobes of the right lung concerning for pneumonia. While aspiration is a possible
underlying etiology, in an elective case where the patient fasted the risk is extremely low. The patient was intubated with balloon and endotracheal tube which required 1 pass and there is no mention of visualized bile or reflux. In addition
typically aspiration pneumonia goes the dependent portions of the lung particular the right lower lobe and would not explain the multilobar picture that we see on the CT scan. Though not CT of the abdomen pelvis we are able to evaluate the right
upper quadrant and no fluid collections are noted there. LFTs normal. Troponins elevated but downtrending.
No acute general surgery warranted at this time.
Continue Zofran and Compazine for nausea control, if this fails to improve significantly could consider a GI consult.
Incisions healing as expected.
Diet per primary.
General surgery will sign off for now, but will follow peripherally. Please call with any questions or concerns.
Original Note:
Consultation
-
Requesting Provider: Nevin
Performing Provider: Halle Enriquez
Medical History
-
Chief Complaint: n/v/sob
History of Present Illness:
Ms Gusman is a 62 yo female with a h/o afib s/p ablation maintained on Xarelto (LD 08/08), gastric sleeve with duodenal switch (2018) and lap cholecystectomy on 08/11/23 for chronic cholecystitis with Dr. Fried as an outpatient. She reports since
her procedure, she has had significant nausea and felt that food was getting stuck in her upper esophagus. She called the fire and explosion investigator service and was provided with Compazine which helped her symptoms; however, although she had some improvement, her
symptoms did not resolve. She developed acute SOB yesterday and was coughing up blood tinged sputum causing her to present for evaluation to the ED with hypoxia noted. She has been able to take in some fluids orally since presentation and reports
she ate some pureed soup last night. Incisional pain is minimal. She is passing flatus. There is some ecchymosis surrounding the umbilical incision but no erythema present.
Past Medical History
Past Medical History: Arrhythmias (afib), GERD, Hypothyroidism, Psychiatric (anxiety/panic attacks) and Other (obesity, anemia)
Past Surgical History: Appendectomy, Cardiac (ICD, ablations), Cholecystectomy (08/11/23), Gynecological (uterine artery ablation), Orthopedic (carpal tunnel surgery on the right, left arthroscopy for torn meniscus, bl BRIGETTE) and Other (gastric sleeve
and duodenal switch)
Social History
Tobacco: Former Smoker
Alcohol: Occasional
Drug: None
Family History
Family History: CAD
Allergies / Home Medications
Allergy/AdvReac Type Severity Reaction Status Date / Time
bacitracin Allergy POSITIVE Verified 08/11/23 08:01
REACTION
ON ALLERGY
TEST
�Medication �Instructions �Recorded �Confirmed �Type
citalopram 40 mg tablet 40 mg PO DAILY Mental 12/21/20 08/13/23 History
Health/Anxiety
metoprolol succinate 100 mg 100 mg PO BID 01/29/21 08/13/23 History
tablet,extended release 24 hr
levothyroxine 100 mcg tablet 100 mcg PO DAILY 03/13/23 08/13/23 History
rivaroxaban 20 mg tablet (Xarelto) 20 mg PO QPM Blood clot 03/13/23 08/13/23 History
prevention/tx
pantoprazole 40 mg tablet,delayed 40 mg PO BID 08/07/23 08/13/23 History
release (Protonix)
acetaminophen 500 mg tablet 1,000 mg (2 x 500 mg) PO Q6HPRN 08/11/23 08/13/23 Rx
(Tylenol Extra Strength) PRN mild pain #1 tab
prochlorperazine maleate 10 mg 10 mg PO Q8H PRN nausea and 08/12/23 08/13/23 Rx
tablet (Compazine) vomiting #14 tabs
diltiazem HCl 240 mg 240 mg PO DAILY@1400 08/13/23 08/13/23 History
capsule,extended release 24 hr,
controlled (DILT-XR)
Review of Systems
-
History Source: Patient
All other systems: Negative unless noted
A 10 point review of systems was completed, and was negative except as per HPI.
Physical Exam
Vital Signs
Temp Pulse Resp BP Pulse Ox
97.6 F 62 24 168/101 93
08/14/23 07:38 08/14/23 07:38 08/14/23 07:38 08/14/23 07:38 08/14/23 07:38
08/13/23 08/14/23 08/15/23
06:59 06:59 06:59
Actual Weight 89.131 kg
Body Mass Index (BMI) 33.8
Lab Results
08/14/23 07:38
08/14/23 07:38
WBC 10.6 10^3/uL (4.8-10.8) 08/14/23 07:38
Hgb 11.8 g/dL (12.0-16.0) L 08/14/23 07:38
Hct 33.9 % (37.0-47.0) L 08/14/23 07:38
Plt Count 185 10^3/uL (130-400) 08/14/23 07:38
Abs Immat Gran (auto) 0.1 10^3/uL (0-0.05) H 08/13/23 11:53
Neutrophils % 82.4 % (42.2-75.2) H 08/13/23 11:53
Physical Exam
General: Comfortable
HEENT: Normocephalic and Anicteric
Respiratory: Non Labored Respirations
GI: Soft, Non Tender, Non Distended and Incisions (ecchymosis surrounding umbilical incision, all incisions well approximated with intact glue and no erythema)
Skin: Warm
Neuro: Awake, Alert and AO x 3
Psych: Calm
Data Reviewed
-
CT Scan: Image Personally Visualized and interpreted, Report Reviewed by me, Discussed with Physician and Discussed with Patient
Labs: Labs Reviewed by me, Discussed with Physician and Discussed with Patient
Old Records: Reviewed
Assessment / Plan
-
62 yo female with h/o afib s/p ablation maintained on Xarelto (LD 5/8), gastric sleeve with duodenal switch (2019) and now POD #[address] Fried as an outpatient for chronic cholecystitis presenting with persistent nausea post op and
subsequent development of SOB with hypoxia (pulse ox 86% on RA in ED). Mild leukocytosis on presentation, now resolved. LFT's unremarkable. CT of chest without PE but right side pneumonia suggested, surgical wound bed without abnormal findings on
imaging. On antibiotics for suspected aspiration pna. AFVSS.
--ABX as per primary team
--Advance to LFD as tolerated
--Continue antiemetics/analgesics
--- NOTE | 2023-08-14 10:42 | W.PN.HOSP.TC ---
Today's Communication/Plan
-
.
Assessment / Plan
Assessment / Plan
Physical Exam
General: Well Developed, Well Nourished, Respiratory Distress and Obese
HEENT: Normocephalic, Moist mucous membranes, Atraumatic, PERRLA and Oxygen
Respiratory: Crackles (faint bibasilar crackles)
Cardiac: S1/S2 and Tachycardia
GI: Soft, Non Tender, Non Distended and Normal Bowel Sounds
Rectal: No rectal bleeding
Genito-urinary: Clear Urine
Musculoskeletal: No Clubbing, No Cyanosis and No Edema
Skin: Warm and Dry
Neuro: AO x 3
Hematologic/Lymphatic: No Lymphadenopathy
Psych: Calm
# Acute hypoxic respiratory failure with respiratory distress, dyspnea, SaO2 89 and 92 % on 4 liters O2
Likely secondary to aspiration pneumonia
CT chest , no pulmonary embolism. Right-sided pneumonia
Likely contribution of recent surgery and intubation as patient reported difficulty swallowing postoperatively
Zosyn, mucolytic's
No fevers, WBC normalized.
Check sputum cultures if possible
Blood cultures
Consult speech
Oxygen supplementation
Anti Nausea meds
# Laparoscopic cholecystectomy on 08/11/[address] Fried
With nausea and vomiting -Antinausea meds, will add Compazine
consult surgery
Symptomatic treatment
# Borderline troponin due to nonischemic myocardial injury secondary to pneumonia
No chest pain
# Paroxysmal atrial fibrillation/a flutter with history of ablation in the past
Continue diltiazem to 40 mg daily, metoprolol 1 mg twice daily
Xarelto to be held until tomorrow per postop instructions
# History of hypertrophic cardiomyopathy with defibrillator placement
Primary vp digital marketing Dr. Smith
# Hypertension-CCB and BB
# Mild hyponatremia-follow
# History of gastric sleeve surgery and duodenal switch 2018
# Hypothyroidism-continue Synthroid
# Elevated parathormone levels
# Asthma-NOS
# GERD/hiatal hernia-Protonix
# Anxiety depression-continue Celexa
# Arthritis/DJD
# DVT prophylaxis-Lovenox
# CODE STATUS-Full
Total time spent to see the patient, examine the patient on the floor, review data and lab results, discuss treatment plan with patient and nursing staff around 55 minutes
Anticipated Discharge: > 48 hours
Subjective/Interval History
-
Date of Service: August 14, 2023
Less nausea after Zofran
No chest pain
No sob
Objective Data
-
Labs:
Laboratory Results
08/14/23
07:38
WBC 10.6
Hgb 11.8 L
Hct 33.9 L
Plt Count 185
Sodium 134 L
Potassium 3.7
Chloride 98
Carbon Dioxide 27
BUN 10
Creatinine 0.5 L
Glucose 138 H
Calcium 9.2
Vital Signs:
Vital Signs
Temp Pulse Resp BP Pulse Ox
97.6 F 62 24 168/101 93
08/14/23 07:38 08/14/23 07:38 08/14/23 07:38 08/14/23 07:38 08/14/23 07:38
I&O
08/13/23 08/14/23 08/15/23
06:59 06:59 06:59
Intake Total 600 / 600
Balance 600 / 600
[2023-08-14] MEDS: ZESTRIL 10 MG PO (11:20)
[2023-08-14] MEDS: COMPAZINE 10 MG IV ×2 (11:20→20:37)
[2023-08-14 12:29] VITALS: BP 164/89
--- NOTE | 2023-08-14 12:46 | PTOTSP ---
ST Acute Care Evaluation
Pt presents with oral and pharyngeal parameters that are WFL for safe PO intake of all solids and liquids. Pt with persistent belching and feelings of nausea with limited tolerance of PO intake, suggestive of possible esophageal dysfunction.
Recommendations:
- Continue with REGULAR SOLIDS and THIN LIQUIDS with meds as tolerated.
- Aspiration and reflux precautions: HOB fully upright for ALL PO intake and for at least an hour after PO intake; alternate bites/sips; eat small bites/sips; slow intake rate; continue PPI BID.
- Consider consultation to GI due to poor PO tolerance, nausea/vomiting, persistent belching with PO.
- LEAD GENERATION SPECIALIST to sign off - no acute dysphagia needs identified at this time.
[2023-08-14] MEDS: CARDIZEM CD 240 MG PO (13:44)
--- NOTE | 2023-08-14 16:25 | CM ---
crew manager reviewed patient's chart and met with patient and patient lives with spouse in a 2 story home, patient is independent with adl's and ambulation, no dme, patient drives, laure did not require oxygen prior to admission, need to follow for
oxygen needs. Laure has a prescription plan and patient uses [facility].
PCP: Dr. Brandt
Plan; Home when stable, will follow for oxygen needs at discharge.
[2023-08-14 16:49] VITALS: BP 162/99
[2023-08-14] MEDS: LOVENOX 40 MG SC (18:04)
[2023-08-14] MEDS: BENADRYL 25 MG PO (21:37)
[2023-08-14 23:55] VITALS: BP 144/77
[2023-08-15 03:43] VITALS: BP 166/87
[2023-08-15] MEDS: ZOFRAN 4 MG IV (04:45)
[2023-08-15] MEDS: SYNTHROID 100 MCG PO (04:45)
[2023-08-15] MEDS: ZOSYN 50 IV ×4 (05:30→23:03)
[2023-08-15] MEDS: COMPAZINE 10 MG IV ×2 (06:09→15:25)
[2023-08-15 07:33] VITALS: BP 154/86
[2023-08-15] MEDS: CELEXA 40 MG PO (08:35)
[2023-08-15] MEDS: ZESTRIL 10 MG PO (08:35)
[2023-08-15] MEDS: PROTONIX 40 MG PO ×2 (08:35→19:43)
[2023-08-15] MEDS: VITAMIN B1 100 MG PO ×2 (08:35→19:43)
[2023-08-15] MEDS: TOPROL XL 100 MG PO ×2 (08:35→19:43)
[2023-08-15] MEDS: ROBITUSSIN 200 MG PO ×4 (08:35→21:43)
--- NOTE | 2023-08-15 11:04 | W.PN.HOSP.TC ---
Today's Communication/Plan
-
likely dc in am
Assessment / Plan
Assessment / Plan
Physical Exam
General: Well Developed, Well Nourished, Respiratory Distress and Obese
HEENT: Normocephalic, Moist mucous membranes, Atraumatic, PERRLA and Oxygen
Respiratory: Good air both sides, no wheezes or crackles.
Cardiac: S1/S2
GI: Soft, Non Tender, Non Distended and Normal Bowel Sounds
Rectal: No rectal bleeding
Genito-urinary: Clear Urine
Musculoskeletal: No Clubbing, No Cyanosis and No Edema
Skin: Warm and Dry
Neuro: AO x 3
Hematologic/Lymphatic: No Lymphadenopathy
Psych: Calm
# Acute hypoxic respiratory failure with respiratory distress, dyspnea, SaO2 89 and 92 % on 4 liters O2
Likely secondary to aspiration pneumonia
CT chest , no pulmonary embolism. Right-sided pneumonia
Likely contribution of recent surgery and intubation as patient reported difficulty swallowing postoperatively
Zosyn, mucolytic's
No fevers, WBC normalized.
No sputum production
Blood cultures are nGTD
Consulted speech, no aspiration EGD in July this year no gross lesions, medium-sized HH.
Oxygen supplementation
Anti Nausea meds
Wean off O2 today
# Laparoscopic cholecystectomy on 08/11/[address] Fried
With nausea and vomiting -Antinausea meds,
Less nausea today, she is feeling better
Symptomatic treatment with Zofran & Compazine.
Appreciate surgery input.
# Borderline troponin due to nonischemic myocardial injury secondary to pneumonia
No chest pain
# Paroxysmal atrial fibrillation/a flutter with history of ablation in the past
Continue diltiazem to 40 mg daily, metoprolol 1 mg twice daily
Resume Xarelto.
# History of hypertrophic cardiomyopathy with defibrillator placement
Primary field sales agent Dr. Smith
# Hypertension-CCB and BB
# Mild hyponatremia-follow
# History of gastric sleeve surgery and duodenal switch 2018
# Hypothyroidism-continue Synthroid
# Elevated parathormone levels
# Asthma-NOS
# GERD/hiatal hernia-Protonix
# Anxiety depression-continue Celexa
# Arthritis/DJD
# DVT prophylaxis-Lovenox
# CODE STATUS-Full
Total time spent to see the patient, examine the patient on the floor, review data and lab results, discuss treatment plan with patient and nursing staff around 57 minutes
Anticipated Discharge: Within 24 hours
Subjective/Interval History
-
Date of Service: August 15, 2023
She is feeling better
No sob
Less nausea
No abdominal pain
Objective Data
-
Vital Signs:
Vital Signs
Temp Pulse Resp BP Pulse Ox
98.4 F 62 16 154/86 95
08/15/23 07:33 08/15/23 07:33 08/15/23 07:33 08/15/23 07:33 08/15/23 07:33
I&O
08/14/23 08/15/23 08/16/23
06:59 06:59 06:59
Intake Total 600 / 600
Output Total 2 / 2
Balance 600 / 600 -2 / -2
[2023-08-15 11:13] VITALS: BP 163/95
--- NOTE | 2023-08-15 12:43 | PN.CDI ---
Addendum entered and electronically signed by Kaiser Jimenez MD 08/15/23 12:53:
_Sepsis-POA
Original Note:
CDI
- -
CDI:
Physician Documentation Request
Admit Date: 08/13/23 16:23
Dear Doctor Barbara,
Please review the following and provide your response in the progress notes.
Clinical Indicators:
Pt admitted with Aspiration Pneumonia now with Acute Hypoxic respiratory Failure
Documented per ED, ' There is a mild leukocytosis with a leftward shift....'
On admission WBC 12.0, Respirations as high as 30 / Pt is being treated with Zosyn IV
Please clarify which of the following most accurately describes the status of the patient's infection:
Sepsis-POA
- Systemic manifestations of infection, with 2 or more SIRS criteria which include:
- Fever >100.4 degrees F or hypothermia < 96.8 degrees F
- Leukocytosis - WBC > 12,000 or leukopenia - WBC < 4,000 or > 10% bands
- Tachycardia > 90 beats per minute
- Tachypnea - RR > 20 breaths per minute or PaCO2 , 32mmHg
Source: Merck Manual 2012
Aspiration Pneumonia only Without Systemic Illness
Other
Use of terms such as suspected, likely, concern for, or probable (associated with a specific diagnosis that is being evaluated, monitored, or treated as if it exists) are acceptable and can be coded in the inpatient setting, when documented at the
time of discharge.
Thank you,
Deena Dennison RN
CDI Specialist
[facility]
Please use your independent medical judgment in providing your response.
[2023-08-15] MEDS: CARDIZEM CD 240 MG PO (13:07)
--- NOTE | 2023-08-15 13:52 | CM ---
Chart reviewed home when stable, no needs.
Plan; Home when stable, no needs.
[2023-08-15 14:51] VITALS: BP 174/87
[2023-08-15] MEDS: XARELTO 20 MG PO (17:27)
[2023-08-15 19:24] VITALS: BP 138/79
[2023-08-15] MEDS: TYLENOL 1000 MG PO (21:43)
[2023-08-15] MEDS: BENADRYL 25 MG PO (21:43)
[2023-08-15 23:20] VITALS: BP 138/76
[2023-08-16] MEDS: COMPAZINE 10 MG IV ×2 (02:10→09:42)
--- NOTE | 2023-08-16 03:24 | DOWNTIME ---
There was a Schedulicity Client Tile Layer Downtime on 08/15/2023 from 0100 to 08/16/2023 at 0300. Downtime documentation of patient's care, including medication administrations, has been reconciled in the electronic record per guidelines. Refer to the
patient's paper chart under the miscellaneous tab to see printed paper medication records and downtime forms.
[2023-08-16 03:30] VITALS: BP 138/70
[2023-08-16] MEDS: ZOSYN 50 IV (06:07)
[2023-08-16] MEDS: SYNTHROID 100 MCG PO (06:07)
[2023-08-16 06:59] LABS: Hematocrit 38.4 % (37.0-47.0); Hemoglobin 13.8 g/dL (12.0-16.0); Mean Corp Hgb Conc. 35.9 g/dL (33.0-37.0); Mean Corpuscular Hgb 32.2 pg (27.0-31.0); Mean Corpuscular Volume 89.7 fL (81.0-99.0); Mean Platelet Volume 10.7 fL (7.4-10.4); Platelet Count 242 10^3/uL (130-400); Red Blood Cell Count 4.28 10^6/uL (4.20-5.40); Red Cell Dist. Width 11.5 % (11.5-14.5); White Blood Cell Count 7.5 10^3/uL (4.8-10.8)
[2023-08-16 07:00] VITALS: BP 153/97
[2023-08-16 07:30] LABS: Blood Urea Nitrogen 10 mg/dl (7-17); Calcium 9.1 mg/dl (8.4-10.2); Carbon Dioxide 31 mmol/L (22-30); Chloride 97 mmol/L (98-107); Estimated Creatinine Clearance 105 ml/min; Glucose 110 mg/dl (70-99); Potassium 3.3 mmol/L (3.5-5.1); Sodium 135 mmol/L (135-145); eGFR > 60.00
[2023-08-16 07:35] VITALS: BP 146/83
--- NOTE | 2023-08-16 09:14 | W.DCSUMMARY ---
Discharge Summary
Discharge Data
Date of Admission: 08/13/23
Date of Discharge: 08/16/23
-
Pending Results: No
Hospital Course
62 years old female admitted with nausea, vomiting, shortness of breath and cough. Patient was found to have right-sided pulmonary infiltrate consistent with aspiration pneumonia/pneumonitis. Patient had recent surgery (laparoscopic
cholecystectomy ) and reported nausea after surgery. Patient also reported difficulty swallowing after surgery. She was evaluated by speech therapy, no aspiration or problems noted on evaluation. Patient was given intravenous Zosyn for possible
aspiration pneumonia. She was found to have hypoxia. Her shortness of breath started to improve. She did not need oxygen. She did not have fever. Blood culture did not show any growth. Patient was evaluated by surgery and recommended to
continue low-fat diet. Patient did not have abdominal pain. She tolerated diet. She was given Compazine for nausea and her nausea started to improve. She did not have headache or blurred vision. Patient was noted to have uncontrolled blood
pressure. She was started on lisinopril. She was counseled regarding potential side effects and importance of monitoring blood pressure. She verbalized understanding. She remained hemodynamically stable and was discharged in a stable condition.
Physical Exam
General: Well Developed, Well Nourished, Respiratory Distress and Obese
HEENT: Normocephalic, Moist mucous membranes, Atraumatic, PERRLA and Oxygen
Respiratory: Good air both sides, no wheezes or crackles.
Cardiac: S1/S2
GI: Soft, Non Tender, Non Distended and Normal Bowel Sounds
Rectal: No rectal bleeding
Genito-urinary: Clear Urine
Musculoskeletal: No Clubbing, No Cyanosis and No Edema
Skin: Warm and Dry
Neuro: AO x 3
Hematologic/Lymphatic: No Lymphadenopathy
Psych: Calm
Total discharge time spent to see the patient, examine the patient on the floor, review data and lab results, discuss discharge plan with patient and nursing staff around 65 minutes
Discharge Plan
-
Patient Disposition: Home (Routine Discharge)
Discharge Diagnosis/Procedures: Aspiration pneumonia, you were given intravenous antibiotic. Finish course with oral antibiotic at home
Hypoxia, resolved
Hypokalemia, treated.
Nausea, you were given Zofran and Compazine.
Primary hypertension, uncontrolled, you were started on new medicine called lisinopril. Potential side effects includes: kidney injury, high potassium, cough, angioedema. Monitor your blood pressure and follow with your primary care doctor to repeat
blood work.
Diet: Low Fat
Activity: No restrictions and No strenuous activity
Driving Restrictions: As prior to admission
Bathing Restrictions: OK to Shower
Blood Work: BMP in one week
Referrals:
Sarah Beth Brandt MD [Family Provider] - in one to two weeks
Roc Fried MD [Active] -
Prescriptions:
New
lisinopril 20 mg Tablet
40 mg PO DAILY Qty: 30 0RF
amoxicillin-pot clavulanate [Augmentin] 500-125 mg tablet
1 tab PO BID Qty: 4 0RF
prochlorperazine maleate [Compazine] 10 mg tablet
10 mg PO Q8H PRN (Reason: nausea and vomiting) Qty: 14 0RF
Continued
citalopram 40 MG tablet
40 mg PO DAILY
metoprolol succinate 100 MG tablet extended release 24 hr
100 mg PO BID
levothyroxine 100 mcg Tablet
100 mcg PO DAILY
Xarelto 20 MG tablet
20 mg PO QPM
Hold Instructions: Resume on 08/14/23. Hold for 72 hours postop. Okay to resume Xarelto Monday morning.
Patient Comments:
08/13/2023, currently on hold; pt. will resume taking on Monday (08/14/2023).
pantoprazole [Protonix] 40 mg Tablet,Delayed Release (Dr/Ec)
40 mg PO BID
acetaminophen [Tylenol Extra Strength] 500 mg tablet
1,000 mg PO Q6HPRN PRN (Reason: mild pain) Qty: 1 0RF
diltiazem HCl [DILT-XR] 240 mg Capsule,Ext.Rel 24h Degradable
240 mg PO DAILY@1400
Discontinued
prochlorperazine maleate [Compazine] 10 mg tablet
10 mg PO Q8H PRN (Reason: nausea and vomiting) Qty: 14 0RF
Discharge Orders:
Discharge Patient (As Directed); Ordered 08/16/23
Ordered By: Kaiser Jimenez
Discharge Date and Time
Print Language: JAMAICAN
[2023-08-16] MEDS: ROBITUSSIN 200 MG PO (09:34)
[2023-08-16] MEDS: VITAMIN B1 100 MG PO (09:34)
[2023-08-16] MEDS: ZESTRIL 40 MG PO (09:34)
[2023-08-16] MEDS: PROTONIX 40 MG PO (09:34)
[2023-08-16] MEDS: CELEXA 40 MG PO (09:34)
[2023-08-16] MEDS: TOPROL XL 100 MG PO (09:34)
[2023-08-16] MEDS: KCL 20 MEQ PO (09:42)
== END 2023-08-16 10:17 | disposition home or self-care (01) | DRG 871 ==
LOC: 4 WEST ACU 16:23
PROVIDERS: Emergency Medicine; ADMITTING PHYSICIAN Hospitalist; ATTENDING PHYSICIAN Internal Medicine; EMERGENCY PHYSICIAN Emergency Medicine; FAMILY PHYSICIAN Internal Medicine; OTHER PHYSICIAN Surgery
DX: A41.9 Sepsis, unspecified organism (principal); J69.0 Pneumonitis due to inhalation of food and vomit; J96.01 Acute respiratory failure with hypoxia; E87.1 Hypo-osmolality and hyponatremia; I5A Non-ischemic myocardial injury (non-traumatic); Z87.891 Personal history of nicotine dependence; I48.0 Paroxysmal atrial fibrillation; I50.9 Heart failure, unspecified; I11.0 Hypertensive heart disease with heart failure; E03.9 Hypothyroidism, unspecified; J45.909 Unspecified asthma, uncomplicated; K21.9 Gastro-esophageal reflux disease without esophagitis; K44.9 Diaphragmatic hernia without obstruction or gangrene; F32.A Depression, unspecified; F41.0 Panic disorder [episodic paroxysmal anxiety]; M19.90 Unspecified osteoarthritis, unspecified site; E87.6 Hypokalemia; E66.9 Obesity, unspecified; Z68.33 Body mass index [BMI] 33.0-33.9, adult
CPT/HCPCS: 71046; 71275; 80048; 80053; 83735; 84484; 85025; 85027; 87040; 92610; 93005; 96361; 96374; 96375; 99285; Q9967

== ENCOUNTER → 2023-08-25 09:25 | Outpatient (REF) | payer BC, SELFPAY ==
[2023-08-25 11:37] LABS: Blood Urea Nitrogen 10 mg/dl (7-17); Calcium 8.8 mg/dl (8.4-10.2); Carbon Dioxide 24 mmol/L (22-30); Chloride 103 mmol/L (98-107); Glucose 98 mg/dl (70-99); Potassium 4.4 mmol/L (3.5-5.1); Sodium 136 mmol/L (135-145); eGFR > 60.00
== END ==
LOC: REG 09:25
PROVIDERS: ATTENDING PHYSICIAN Internal Medicine; FAMILY PHYSICIAN Internal Medicine
DX: I10 Essential (primary) hypertension (principal)
CPT/HCPCS: 36415; 80048

== ENCOUNTER → 2023-11-03 08:37 | Outpatient (REF) | payer BC, SELFPAY | LOC: REG 08:37 | PROVIDERS: ATTENDING PHYSICIAN Internal Medicine Gastroenterology; FAMILY PHYSICIAN Internal Medicine | DX: R19.7 Diarrhea, unspecified (principal) | CPT/HCPCS: 82653 ==

== ENCOUNTER → 2024-01-01 08:39 | Outpatient (REF) | payer BC, SELFPAY ==
[2024-01-01 11:15] LABS: 24 Hour Urine Total Volume 3500 ml
[2024-01-01 11:16] LABS: 24 Hour Urine Calcium 73.5 mg/day; 24 Hour Urine Creatinine 1.372 gm/day (0.8-1.8); Urine Calcium 2.1 mg/dl
== END ==
LOC: REG 08:39
PROVIDERS: ATTENDING PHYSICIAN Physician Assistant; FAMILY PHYSICIAN Internal Medicine
DX: E34.9 Endocrine disorder, unspecified (principal)
CPT/HCPCS: 81050; 82340; 82570

== ENCOUNTER → 2024-02-09 08:47 | Outpatient (REF) | payer BC, SELFPAY | LOC: RAD 08:47 | PROVIDERS: ATTENDING PHYSICIAN Internal Medicine Cardiovascular Disease; FAMILY PHYSICIAN Internal Medicine | DX: I72.9 Aneurysm of unspecified site (principal) | CPT/HCPCS: 93926 ==

== ENCOUNTER 2024-02-09 11:25 | Emergency (ER) | payer BC, SELFPAY ==
[2024-02-09 11:26] VITALS: BMI 33.0
[2024-02-09 11:29] VITALS: BP 149/94
[2024-02-09 11:46] VITALS: BP 143/88
[2024-02-09 12:00] VITALS: BP 148/75
--- NOTE | 2024-02-09 12:15 | ED.GENMED ---
History of Present Illness
General
Chief Complaint: Vascular Symptoms
Source: patient and family
Time Seen by Provider: 02/09/24 11:39
History of Present Illness
History of Present Illness:
This is a 63-year-old female who had an ablation back in May. She then developed on the left side a pseudoaneurysm that was small and they have been monitoring ever since. Recently became larger and she had an outpatient ultrasound today that
showed expanding hematoma. She was advised to have thrombin injection by IR. She was sent for further evaluation. Patient denies any pain but can feel the hematoma is larger.
Past History
Past History
ED Past Medical History: Arrthythmia, Asthma, CHF, Hypothyroidism and Psychiatric
ED Past Surgical History: Appendectomy, Cardiac, Cholecystectomy, Gynecological and Other
Social History
Tobacco: Former smoker
Alcohol: Former
Drug: None
Personal:
Living: with family
Employment: Employed
Family History
Family History: Negative Sudden
Phy Exam
Physical Exam
Physical Exam:
CONSTITUTIONAL Vital signs reviewed, Patient alert and oriented to person, place and time. Well-appearing
HEAD atraumatic, normocephalic.
EYES eyelids normal to inspection, Extraocular muscles intact, Conjunctiva normal, Sclera normal.
NECK normal range of motion, Trachea midline, no jugular venous distention.
RESP no respiratory distress
BACK No obvious deformities
UPPER EXTREMITY Gross Range of motion normal, gross motor strength normal
LOWER EXTREMITY Gross range of motion normal, Gross motor strength normal. Palpable indurated mass noted to the left groin. Minimal to normal distal pulses at the DP and posterior tibial sites. No edema
NEURO Speech normal, No focal motor deficits include, [place] coma scale 15, Memory normal, Cranial Nerves intact to screening exam.
SKIN Skin warm, dry, and normal in color.
PSYCHIATRIC Patient oriented to person place and time, Normal affect.
Course
Orders/Labs/Results
Orders:
Orders
02/09/24 12:08
Consult Interventional Radiology [[facility] CONSULT] Urgent
Consulting Provider: Roc Arce
Was physician already notified: Yes
Reason for Consult/Procedure: pseudoaneurysm
Acknowledgement that appropriate orders are entered: Yes
Vital Signs
Initial and Last Documented VS:
Initial Vital Signs
Temp Pulse Resp BP Pulse Ox
99.0 F 73 18 149/94 96
02/09/24 11:29 02/09/24 11:29 02/09/24 11:29 02/09/24 11:29 02/09/24 11:29
Last Documented Vital Signs
Temp Pulse Resp BP Pulse Ox
99.0 F 72 20 143/88 96
02/09/24 11:29 02/09/24 11:46 02/09/24 11:46 02/09/24 11:46 02/09/24 11:46
MDM/Problems Addressed
MDM/Problems Addressed:
Pseudoaneurysm
*Pulse Oximetry
Patient hypoxic: no
*Critical Care Note
Total Time (30-74mins, 75-104mins- exclusive of procedures): Not Applicable
Data Reviewed
Review of Other/Old Records Reveals: Radiology Studies (Outpatient ultrasound report reviewed), Operative Reports (Previous ablation report reviewed) and Discharge Summary
Source: patient
Further Testing Considered But Not Given:
Consider labs patient has been stable
Patient Management
Discussion with other providers: Strawhat Inspector And Packer (Case discussed with Dr Hollis) and Radiologist (Case discussed with Dr. Chance)
Escalation/DeEscalation of care consider admission/obs:
Patient remained stable. Interventional radiology to inject thrombin. Patient likely will be discharged from IR
ED Attending Note
-
Portions of this chart may have been created with voice recognition software.� Occasional wrong word or��sound alike� substitutions may have occurred due to the inherent limitations of voice recognition software.
Discharge Plan
Departure
Discharge Problem:
Pseudoaneurysm following procedure
Instructions: BLOOD PRESSURE
Prescriptions:
No Action
citalopram 40 MG tablet
40 mg PO DAILY
metoprolol succinate 100 MG tablet extended release 24 hr
100 mg PO BID
levothyroxine 100 mcg Tablet
100 mcg PO DAILY
Xarelto 20 MG tablet
20 mg PO QPM
Patient Comments:
08/13/2023, currently on hold; pt. will resume taking on Monday (08/14/2023).
pantoprazole [Protonix] 40 mg Tablet,Delayed Release (Dr/Ec)
40 mg PO BID
acetaminophen [Tylenol Extra Strength] 500 mg tablet
1,000 mg PO Q6HPRN PRN (Reason: mild pain) Qty: 1 0RF
diltiazem HCl [DILT-XR] 240 mg Capsule,Ext.Rel 24h Degradable
240 mg PO DAILY@1400
lisinopril 20 mg Tablet
40 mg PO DAILY Qty: 30 0RF
amoxicillin-pot clavulanate [Augmentin] 500-125 mg tablet
1 tab PO BID Qty: 4 0RF
prochlorperazine maleate [Compazine] 10 mg tablet
10 mg PO Q8H PRN (Reason: nausea and vomiting) Qty: 14 0RF
Referrals:
Sarah Beth Brandt MD [Family Provider] -
Activity Restrictions/Additional Instructions:
Please follow instructions as given to you by interventional radiologist after your procedure. Return for pain, fevers, redness, swelling of the groin or any other concerns.
Interventions
Interventions:
*Risk Screen - Suicide Last Done: 02/09/24 11:29
*General Assessment Last Done: 02/09/24 11:29
ED- Fall Risk Assessment Last Done: 02/09/24 11:49
*ED COVID-19 Vaccine History Last Done: 02/09/24 11:29
ED- Cardiac Assessment Last Done: 02/09/24 11:49
ED- Pulmonary Assessment Last Done: 02/09/24 11:49
ED-Peripheral Vascular Assessment Last Done: 02/09/24 11:49
ED-Skin Assessment Last Done: 02/09/24 11:49
Discharge Date and Time
Print Language: IRANIAN
[2024-02-09 13:00] VITALS: BP 150/89; BP_SYST 69
--- NOTE | 2024-02-09 15:25 | W.PN.UPDATE ---
Update Note
Progress Note Update
Left PHOTOVOLTAIC INSTALLATION TECHNICIAN pseudoaneurysm injected with 1000 units thrombin, with complete cessation of blood flow in the pseudoaneurysm. PHOTOVOLTAIC INSTALLATION TECHNICIAN flow preserved, PT/DP signals intact.
Bedrest until 5 pm to allow thrombus to organize, then OK for ambulation/discharge.
OK to continue Xarelto.
[2024-02-09 16:30] VITALS: BP 155/89; BP_SYST 69
--- NOTE | 2024-02-09 16:34 | PTCARENOTE ---
Procedure completed [id number], brought out to IRAD recovery. To remain in IRAD until 1645. Pulse/extremity checks done q15min X4 then Q30 mins. see documentation. 1630 Right a/c IV line d/c'd.
[2024-02-09 16:41] VITALS: BP 153/88
== END 2024-02-09 13:00 | disposition home or self-care (01) ==
LOC: EMR 11:25
PROVIDERS: CONSULT PHYSICIAN Radiology Vascular & Interventional Radiology; EMERGENCY PHYSICIAN Emergency Medicine; FAMILY PHYSICIAN Internal Medicine
DX: T81.718A Complication of other artery following a procedure, not elsewhere classified, initial encounter (principal); I72.4 Aneurysm of artery of lower extremity; Y83.8 Other surgical procedures as the cause of abnormal reaction of the patient, or of later complication, without mention of misadventure at the time of the procedure
CPT/HCPCS: 99284; 36002; 76942; 93926

== ENCOUNTER → 2024-02-22 08:19 | Outpatient (REF) | payer BC, SELFPAY | LOC: RAD 08:19 | PROVIDERS: ATTENDING PHYSICIAN Internal Medicine Cardiovascular Disease; FAMILY PHYSICIAN Internal Medicine | DX: I72.9 Aneurysm of unspecified site (principal) | CPT/HCPCS: 93926 ==

== ENCOUNTER → 2024-02-23 12:21 | Outpatient (REF) | payer BC, SELFPAY ==
[2024-02-23 12:45] VITALS: BP 162/91; BP_SYST 73
== END ==
LOC: RADI 12:21
PROVIDERS: ATTENDING PHYSICIAN Internal Medicine Cardiovascular Disease; FAMILY PHYSICIAN Internal Medicine
DX: I72.4 Aneurysm of artery of lower extremity (principal)
CPT/HCPCS: 36002; 76080

== ENCOUNTER 2024-03-05 15:04 | Inpatient (IN) | payer BC, SELFPAY ==
[2024-03-05] VITALS (8 sets, daily range): BP systolic 132–179; BP diastolic 62–109; BMI 23.7
[2024-03-05 08:20] LABS: % Basophils 0.4 % (0-2); % Immature Granulocytes 0.5 % (0-0.5); % Lymphocytes 15.1 % (20.5-51.1); % Monocytes 7.2 % (1.7-9.3); % Neutrophils 75.8 % (42.2-75.2); Absolute Eosinophils 0.1 10^3/uL (0-0.7); Absolute Immature Granulocytes 0.1 10^3/uL (0-0.05); Absolute Lymphocytes 1.6 10^3/uL (1.2-3.4); Absolute Monocytes 0.8 10^3/uL (0.1-0.6); Absolute Neutrophils 8.2 10^3/uL (1.4-6.5); Hematocrit 41.7 % (37.0-47.0); Mean Corpuscular Hgb 33.3 pg (27.0-31.0); Mean Corpuscular Volume 92.7 fL (81.0-99.0); Mean Platelet Volume 10.1 fL (7.4-10.4); Nucleated Red Blood Cells % 0 %; Platelet Count 243 10^3/uL (130-400); Red Cell Dist. Width 11.8 % (11.5-14.5); White Blood Cell Count 10.8 10^3/uL (4.8-10.8)
[2024-03-05 08:39] LABS: ALT (SGPT) 24 U/L (0-35); AST (SGOT) 36 U/L (14-36); Albumin 4.3 g/dl (3.5-5.0); Alkaline Phosphatase 76 U/L (38-126); Blood Urea Nitrogen 9 mg/dl (7-17); Calcium 9.6 mg/dl (8.4-10.2); Carbon Dioxide 26 mmol/L (22-30); Chloride 103 mmol/L (98-107); Glucose 147 mg/dl (70-99); Lipase 178 U/L (23-300); Potassium 3.7 mmol/L (3.5-5.1); Sodium 140 mmol/L (135-145); Total Bilirubin 2.5 mg/dl (0.2-1.3); eGFR > 60.00
--- NOTE | 2024-03-05 08:53 | ED.GENMED ---
History of Present Illness
General
Chief Complaint: Abdominal Symptoms
Source: patient
Exam Limitations: none
Time Seen by Provider: 03/05/24 08:42
Nursing documentation reviewed up to this point in time: agreed with
History of Present Illness
History of Present Illness:
Patient presents ED secondary to worsening nausea, vomiting, and nonbloody diarrhea over the past 3 days. Patient has been dealing with these similar symptoms for quite some time. Patient had an elective cholecystectomy in August of this year, with
hopes of improving symptoms. Unfortunately, patient states that her symptoms have not improved and she has been dealing with similar symptoms on a weekly basis. Patient has an appointment with her GI physician in May of next year. In the
meantime, patient reports significant weight loss, with her continual symptoms. Denies fever or chills. Denies abdominal pain. Denies recent change in diet. Denies dizziness. Denies shortness of breath.
Past History
Past History
ED Past Medical History: Arrthythmia, Asthma, CHF, Hypothyroidism and Psychiatric
ED Past Surgical History: Appendectomy, Cardiac, Cholecystectomy, Gynecological and Other
Social History
Tobacco: Former smoker
Alcohol: Former
Drug: None
Personal:
Living: with family
Employment: Employed
Family History
Family History: Negative Sudden
Review of Systems
Review of Systems
Allergies reviewed?: Yes
All Other Systems: ROS reviewed and negative except as documented in HPI and ROS
Constitutional: Reports no symptoms; Denies fever or chills
Respiratory: Reports no symptoms
Cardiac: Reports no symptoms
ABD/GI: Reports nausea, vomiting and diarrhea; Denies abdominal pain
: Reports no symptoms
Musculoskeletal: Reports no symptoms
Skin: Reports no symptoms
Neurological: Reports weakness; Denies dizzy or headache
Phy Exam
Physical Exam
Physical Exam:
Physical Exam
General: mild distress, not acutely ill. afebrile. uncomfortable appearing.
Head: nc/at. eomi
Neck: supple. no meningeal signs
Heart: s1/s2 regular rate and rhythm, no murmur. equal radial pulses.
Lungs: no acute respiratory distress. clear bilaterally
Abdomen: normal bowel sounds. not tender. no distention
Neuro: alert and oriented. no focal neurological deficits
Skin: no rash
Psychiatric: well kept. interactive and cooperative
Extremities: no edema. no calf tenderness.
Course
Orders/Labs/Results
Orders:
Orders
03/05/24 08:05
Complete Blood Count/With Diff Urgent
Comprehensive Metabolic Panel Urgent
Lipase Urgent
Magnesium Urgent
03/05/24 08:51
0.9% Sodium Chloride 1000 ml [Nss] 1,000 ml IV BOLUS
Ketorolac [Toradol] 15 mg IV NOW STA
Ondansetron Injectable [Zofran] 4 mg IV NOW STA
Pantoprazole [Protonix IV] 40 mg IV NOW STA
03/05/24 08:52
Electrocardiogram (*1) Urgent
Reason for Study: QTc Monitoring
EKG- Treatment ONCE
03/05/24 08:53
Add On- LAB Urgent
Tests Added?: magnesium
03/05/24 09:19
CT Abd/pel W Iv And Oral Contr Urgent
Comment:
Reason For Exam: abd pain w n/v/d
Iohexol [Omnipaque] See Protocol PO NOW STA
03/05/24 10:09
Ondansetron Injectable [Zofran] 4 mg IV NOW STA
03/05/24 13:00
0.9% Sodium Chloride 500 ml [Nss] 500 ml IV 100 mls/hr
03/05/24 13:29
STOOL [C difficile Antigen & Toxins] Urgent
JAMES Source: Feces/Stool
Specimen Description:
Date Specimen was Collected: 03/05/24
Time Specimen was Collected: 13:20
Stool Culture Urgent
JAMES Source: Feces/Stool
Specimen Description:
Date Specimen was Collected: 03/05/24
Time Specimen was Collected: 13:20
03/05/24 13:34
Prochlorperazine [Compazine] 10 mg IV NOW STA
03/05/24 14:29
Admit/Transfer Patient As Directed
Co-Sign Provider:
Level of Care: Inpatient admission
Assign to:: Medical/Surgical
Physician / Group: mauro
Diagnosis: gastroparesis
Reason for Hospitalization: gastroparesis
Expected length of stay greater than two midnights?: Yes
ELOS- Estimated Length of Stay in days: 2
I certify the patient meets the requirements for IP care: Yes
Code Status As Directed
Resuscitation Status: Full Code
PRN Pain Medication Management As Directed
May give lesser potent ordered pain med per pt: Yes
preference::
Protocol:: Medication orders for pain may be administered in a
manner that supports deferring to patient preference
when the pt is:
- Requesting an ordered lesser potent pain medication.
Least to most potent pain medications are defined
as: acetaminophen < NSAID < tramadol < opioids
(morphine, oxycodone, hydromorphone).
- Requesting a lesser dose of the same medication IF
ORDERED.
- Requesting a less intrusive route of administration
if both routes are prescribed by the provider (PO <
IV).
03/05/24 Dinner
NPO
Allow oral meds: Yes
Allow clear liquids: Sips of Clears
03/05/24 17:21
0.9% Sodium Chloride 1000 ml [Nss] 1,000 ml IV 100 mls/hr
Acetaminophen [Tylenol] 1,000 mg PO Q6HPRN PRN
Ondansetron Injectable [Zofran] 4 mg IV Q6HPRN PRN
03/05/24 17:21
GASTROINTESTINAL CONSULT Routine
Consulting Provider: Markell Boston
Was physician already notified: Yes
Activity As Directed
Activity Level: As Tolerated
Pneumatic Compression Sleeves As Directed
Type: Knee high
Vital Signs As Directed
Frequency: Per unit guidelines
DX Deep Vein Thrombosis Video Routine
03/05/24 20:00
Metoprolol Xl [Toprol Xl] 100 mg PO BID
Pantoprazole [Protonix IV] 40 mg IV BID
03/06/24 06:00
Levothyroxine [Synthroid] 100 mcg PO DAILY @ 0600
03/06/24 07:24
Complete Blood Count/With Diff IN AM
Comprehensive Metabolic Panel IN AM
03/06/24 08:00
Citalopram [Celexa] 40 mg PO DAILY
03/06/24 14:00
Diltiazem Extended Release [Cardizem Cd] 240 mg PO DAILY@1400
Abnormal Lab Results
03/05/24
08:05
MCH 33.3 H pg
(27.0-31.0)
Abs Immat Gran (auto) 0.1 H 10^3/uL
(0-0.05)
Absolute Neuts (auto) 8.2 H 10^3/uL
(1.4-6.5)
Absolute Monos (auto) 0.8 H 10^3/uL
(0.1-0.6)
Neutrophils % 75.8 H %
(42.2-75.2)
Lymphocytes % 15.1 L %
(20.5-51.1)
Glucose 147 H mg/dl
(70-99)
Total Bilirubin 2.5 H mg/dl
(0.2-1.3)
03/05/24 08:05
03/05/24 08:05
Vital Signs
Initial and Last Documented VS:
Initial Vital Signs
Temp Pulse Resp BP Pulse Ox
98.2 F 73 16 156/96 98
03/05/24 07:52 03/05/24 07:52 03/05/24 07:52 03/05/24 07:52 03/05/24 07:52
Last Documented Vital Signs
Temp Pulse Resp BP Pulse Ox
98.1 F 69 12 185/99 95
03/06/24 15:00 03/06/24 15:00 03/06/24 15:00 03/06/24 15:00 03/06/24 15:00
MDM/Problems Addressed
MDM/Problems Addressed:
CT abdomen pelvis report reviewed and discussed with on-call vascular surgeon, Dr. Anguiano. Dr. Anguiano aware of the patient and states that what is noted on CT scan is likely continual leaking from femoral vein, but well-contained within the
pseudoaneurysm. Does not feel the patient needs an acute intervention at this time. However, patient is continuing to experience ongoing nausea sensation, despite treatment. As such, patient will be admitted for further evaluation and treatment.
*EKG
EKG Intrepretation Date: 03/05/24
Heart Rate: 65
Rate: normal
Rhythm: sinus
[place]: normal axis
Ischemia: ST depression
*Critical Care Note
Total Time (30-74mins, 75-104mins- exclusive of procedures): Not Applicable
ED Attending Note
-
Portions of this chart may have been created with voice recognition software.� Occasional wrong word or��sound alike� substitutions may have occurred due to the inherent limitations of voice recognition software.
Discharge Plan
Departure
Patient Disposition: Admit
Date of Disposition: 03/05/24
Time of Disposition: 13:39
Admit to: Telemetry
Presentation/result/management discussed w/ accepting MD/DO: Hospitalist
Discharge Problem:
Intractable nausea and vomiting, Pseudoaneurysm
Interventions
Interventions:
*Risk Screen - Suicide Last Done: 03/05/24 07:52
*General Assessment Last Done: 03/05/24 07:52
*Neglect/Abuse Screening Last Done: 03/05/24 07:52
*ED COVID-19 Vaccine History Last Done: 03/05/24 13:59
*Nursing Disposition Last Done: 03/05/24 17:12
DO-Jhohye-Cetslmxqch Assessment Last Done: 03/05/24 11:00
Discharge Date and Time
Discharge Date/Time: 03/05/24 17:13
[2024-03-05] MEDS: TORADOL 15 MG IV (09:03)
[2024-03-05] MEDS: PROTONIX IV 40 MG IV ×2 (09:05→20:41)
[2024-03-05] MEDS: ZOFRAN 4 MG IV ×3 (09:05→18:22)
[2024-03-05] MEDS: NSS 1000 IV ×3 (09:06→18:17)
[2024-03-05] MEDS: OMNIPAQUE 50 ML PO (09:27)
[2024-03-05] MEDS: NSS 500 IV (13:53)
[2024-03-05] MEDS: COMPAZINE 10 MG IV (13:53)
--- NOTE | 2024-03-05 14:32 | HPS.HSE ---
Family Physician
-
Family Physician: Sarah Beth rBandt
Chief Complaint
-
vomiting, diarrhea
History of Present Illness
63-year-old female with past medical history of paroxysmal atrial fibrillation/flutter with prior ablation, hypertrophic cardiomyopathy with ICD, hypertension, gastric sleeve surgery/duodenal switch 2019, hypothyroidism, asthma, anxiety/depression,
GERD/hiatal hernia, arthritis, presenting with worsening nausea and vomiting nonbloody diarrhea over the past 3 days.
Patient has been having milder version of the symptoms for a year and had elective cholecystectomy in August of this year with hopes of improving symptoms. Symptoms did not improve. She has frequent intermittent nausea and vomiting. She normally has
7 loose stools a day which she had since she had the gastric sleeve surgery/duodenal switch. She has an appoint with GI in May. She has lost 15 to 20 pounds in the past [address] Lopez.
She is not drinking alcohol over the past few weeks. Denies smoking or marijuana use.
Denies fevers or chills. Denies abdominal pain. Denies dizziness or shortness of breath.
Medical History
Past Medical History
Past Medical History: Reports Other (paroxysmal atrial fibrillation/flutter with prior ablation, hypertrophic cardiomyopathy with ICD, hypertension, gastric sleeve surgery/duodenal switch 2019, hypothyroidism, asthma, anxiety/depression, GERD/hiatal
hernia, arthritis)
Past Surgical History: Reports Other ( Appendectomy, Cardiac, Cholecystectomy, Gynecological and Other)
Social History
Tobacco: Non-smoker
Alcohol: None
Drug: None
Family History
Family History: Not pertinent
Allergies / Home Medications
Allergies reflects when Allergies were last updated in [facility].
Home Medications with original date entered in [facility]
Allergy/Medication List:
Allergies
Allergy/AdvReac Type Severity Reaction Status Date / Time
bacitracin Allergy POSITIVE Verified 03/05/24 07:52
REACTION
ON ALLERGY
TEST
Home Medications
citalopram 40 mg tablet 40 mg PO DAILY Mental Health/Anxiety 12/21/20
metoprolol succinate 100 mg tablet,extended release 24 hr 100 mg PO BID 01/29/21
levothyroxine 100 mcg tablet 100 mcg PO DAILY 03/13/23
acetaminophen 500 mg tablet (Tylenol Extra Strength) 1,000 mg (2 x 500 mg) PO Q6HPRN PRN mild pain #1 tab 08/11/23
diltiazem HCl 240 mg capsule,extended release 24 hr, controlled (DILT-XR) 240 mg PO DAILY@1400 08/13/23
prochlorperazine maleate 10 mg tablet (Compazine) 10 mg PO Q8HPRN PRN nausea and vomiting 03/05/24
Review of Systems
-
History Source: Patient
A 12 point ROS was completed and negative except as noted: Yes
Constitutional: Reports No Symptoms
EENT: Reports No Symptoms
Respiratory: Reports No Symptoms
Cardiac: Reports No Symptoms
Abdomen/GI: Reports See HPI
: Reports No Symptoms
Musculoskeletal: Reports No Symptoms
Skin: Reports No Symptoms
Neurological: Reports No Symptoms
Endocrine: Reports No Symptoms
Hematologic/Lymphatic: Reports No Symptoms
Psych: Reports No Symptoms
Physical Exam
Vital Signs
Vital Signs
Temp Pulse Resp BP Pulse Ox
98.2 F 70 16 169/98 95
03/05/24 07:52 03/05/24 13:30 03/05/24 07:52 03/05/24 13:27 03/05/24 13:30
Physical Exam
General: Well Developed, Well Nourished and No Apparent Distress
HEENT: NormoCephalic, Moist mucous membranes and Atraumatic
Respiratory: Clear
Cardiac: S1/S2 and Regular Rhythm; No Murmur or Rub
GI: Soft, Non Tender, Non Distended and Normal Bowel Sounds; No Organomegaly
Rectal: Deferred by Provider
Musculoskeletal: No Clubbing, No Cyanosis and No Edema
Skin: No Rash
Neuro: Nonfocal/grossly intact
Laboratory Results
-
03/05/24 08:05
03/05/24 08:05
Laboratory Results
Total Bilirubin 2.5 mg/dl (0.2-1.3) H 03/05/24 08:05
AST 36 U/L (14-36) 03/05/24 08:05
ALT 24 U/L (0-35) 03/05/24 08:05
Alkaline Phosphatase 76 U/L (38-126) 03/05/24 08:05
Lipase 178 U/L (23-300) 03/05/24 08:05
Data Reviewed
-
Lab Data: Labs Reviewed by me
Old Records: Reviewed
Impression/Plan
-
IMPRESSION:
PLAN:
# Chronic vomiting/diarrhea with weight loss concerning for gastritis/gastroparesis flare
# History of gastric sleeve surgery/duodenal switch in 2019
# History of GERD/hiatal hernia
-Unclear diagnosis possibly gastroparesis
-CT abdomen pelvis shows no evidence of bowel obstruction
-Colonoscopy from July showed polyps, diverticulosis,
-EGD from July showed no notable abnormalities apart from hiatal hernia
-N.p.o.
-IV fluids given, continue
-Zofran
-Protonix 40 IV twice daily
-Stool culture, C. difficile pending
# Left groin pseudoaneurysm
-Denies any pain at the site
-CT scan shows that is rising from the anterior margin of the left common femoral vein rather than the left common femoral artery. There is evidence for active bleeding
-ER discussed with vascular and patient already scheduled for surgical repair in 03/22
-Vascular surgery can be consulted if necessary
Paroxysmal atrial fibrillation/flutter prior ablation
-Continue diltiazem
-Xarelto has been on hold since left groin pseudoaneurysm was discovered
Hypertrophic cardiomyopathy with ICD
Essential hypertension
-Continue metoprolol
Hypothyroidism
-Continue levothyroxine
Asthma
Anxiety/depression
-Continue citalopram
Arthritis
Full code
DVT prophylaxis�SCDs
N.p.o.
--- NOTE | 2024-03-05 15:08 | CON.GI ---
Consultation
-
Date/Time Consultation Performed: 03/05/24
Performing Provider: Ammon Boston MD
Reason for Consultation: N/V/D
Medical History
Chief Complaint / HPI
Chief Complaint: N/V/D
History of Present Illness:
The patient is a 63-year-old female with past medical history as noted with nausea, vomiting and diarrhea. She has had symptoms going on for about a year, though have become progressively worse. She describes intense nausea followed by episodes of
emesis. She usually has loose stools since her duodenal switch though these have been sometimes worse. She has had extensive workup including cholecystectomy, EGD, colonoscopy, labs and stool studies which have been essentially unremarkable. She
denies any specific abdominal pain or food associations. She denies any fever, chills, melena, hematochezia or hematemesis. She had an uneventful duodenal switch in 2019 and done well up until the past year. She does take Compazine at home though
her symptoms have been worsening.
Past Medical History
Past Medical History: Other (A-fib/flutter status post ablation, hypertrophic cardiomyopathy with ICD, hypertension, hypothyroid, anxiety, depression, duodenal switch in 2019)
Past Surgical History: Other (Left hip replacement, right hip replacement, cardioversion, ablation, appendectomy, uterine ablation, cholecystectomy)
Social History
Tobacco: Non-Smoker
Alcohol: None
Family History
Family History: Reviewed & Not Pertinent
Allergies / Home Medications
Allergy/AdvReac Type Severity Reaction Status Date / Time
bacitracin Allergy POSITIVE Verified 03/05/24 07:52
REACTION
ON ALLERGY
TEST
�Medication �Instructions �Recorded
citalopram 40 mg tablet 40 mg PO DAILY Mental 12/21/20
Health/Anxiety
metoprolol succinate 100 mg 100 mg PO BID 01/29/21
tablet,extended release 24 hr
levothyroxine 100 mcg tablet 100 mcg PO DAILY 03/13/23
acetaminophen 500 mg tablet 1,000 mg (2 x 500 mg) PO Q6HPRN 05/10/24
(Tylenol Extra Strength) PRN mild pain #1 tab
diltiazem HCl 240 mg 240 mg PO DAILY@1400 08/13/23
capsule,extended release 24 hr,
controlled (DILT-XR)
prochlorperazine maleate 10 mg 10 mg PO Q8HPRN PRN nausea and 03/05/24
tablet (Compazine) vomiting
Review of Systems
-
All other systems: A 12 pt ROS was Negative except as stated above in HPI
Vital Signs
Temp Pulse Resp BP Pulse Ox
98.2 F 70 16 169/98 95
03/05/24 07:52 03/05/24 13:30 03/05/24 07:52 03/05/24 13:27 03/05/24 13:30
Physical Exam
Exam
General: NAD
HEENT: MMM, anicteric, no lymphadenopathy
Heart: Regular, no murmurs
Lungs: CTA bilaterally
Abdomen: normal bowel sounds, soft, no tenderness, no rebound or guarding, no masses, bruits or ascites
Extremeties: no edema
Skin: no rashes
Results
WBC 10.8 10^3/uL (4.8-10.8) 03/05/24 08:05
Hgb 15.0 g/dL (12.0-16.0) 03/05/24 08:05
Hct 41.7 % (37.0-47.0) 03/05/24 08:05
MCV 92.7 fL (81.0-99.0) 03/05/24 08:05
Plt Count 243 10^3/uL (130-400) 03/05/24 08:05
Absolute Neuts (auto) 8.2 10^3/uL (1.4-6.5) H 03/05/24 08:05
Sodium 140 mmol/L (135-145) 03/05/24 08:05
Potassium 3.7 mmol/L (3.5-5.1) 03/05/24 08:05
Chloride 103 mmol/L (98-107) 03/05/24 08:05
Carbon Dioxide 26 mmol/L (22-30) 03/05/24 08:05
BUN 9 mg/dl (7-17) 03/05/24 08:05
Creatinine 0.6 mg/dL (0.6-1.0) 03/05/24 08:05
Calcium 9.6 mg/dl (8.4-10.2) 03/05/24 08:05
Total Bilirubin 2.5 mg/dl (0.2-1.3) H 03/05/24 08:05
AST 36 U/L (14-36) 03/05/24 08:05
ALT 24 U/L (0-35) 03/05/24 08:05
Alkaline Phosphatase 76 U/L (38-126) 03/05/24 08:05
Lipase 178 U/L (23-300) 03/05/24 08:05
Diagnostic Image Results:
CT:
MPRESSION: Evidence of gastric sleeve surgery. There is a gastrojejunostomy present with a duodenal stump. No evidence for bowel obstruction or free intraperitoneal air. No significant bowel wall thickening is identified.
In the left groin, there is a mass present which is very likely a pseudoaneurysm. Of note, this appears to be arising from the anterior margin of the left common femoral vein rather than the left common femoral artery. There is evidence for a
component of active bleeding. Consider further evaluation with dedicated ultrasound for possible intervention.
Small focal areas of fatty infiltration involving the liver.
Coronary artery calcifications. Please correlate with symptoms of and risk factors for coronary artery disease, with further workup as clinically appropriate.
Bilateral hip prostheses, with resultant streak artifact limiting evaluation of the pelvis.
Prior GI Procedures:
EGD:
07/25:
Impression: - No gross lesions in the entire esophagus.
- Z-line variable, 36 cm from the incisors. Biopsied.
- Medium-sized hiatal hernia.
- No gross lesions in the entire stomach. Biopsied.
- Nodule found in the duodenum. Biopsied.
- Widely patent duodenal switch, characterized by
healthy appearing mucosa was found. Biopsied.
Colonoscopy:
07/25:
Findings:
The perianal and digital rectal examinations were normal.
The terminal ileum appeared normal.
A 2 mm polyp was found in the hepatic flexure. The polyp was sessile.
The polyp was removed with a jumbo cold forceps. Resection and retrieval
were complete.
Two sessile polyps were found in the transverse colon. The polyps were 2
to 3 mm in size. These polyps were removed with a jumbo cold forceps.
Resection and retrieval were complete.
A 3 mm polyp was found in the recto-sigmoid colon. The polyp was
sessile. The polyp was removed with a cold snare. Resection and
retrieval were complete.
A few small-mouthed diverticula were found in the sigmoid colon and
descending colon.
Normal mucosa was found in the entire colon. Biopsies were taken with a
cold forceps for histology.
No additional abnormalities were found on retroflexion.
Assessment / Plan
-
1. Nausea/vomiting/diarrhea: Unclear etiology, progressive over the past year with extensive workup as described above including labs, stool studies, EGD, colonoscopy previous ultrasound, cholecystectomy. I wonder if there could be some component
of dumping syndrome adding to her symptoms, which can be a delayed complication post duodenal switch, or other vitamin deficiency from malabsorption. CT scan now, as well as labs and stool studies are unremarkable, though some stool studies are
still pending, C. difficile is negative. Her LFTs were essentially normal though bilirubin was not fractionated, though CAT scan shows no obvious duct dilation. At this point would continue supportive care, IV fluids, antiemetics, await further
stool studies. Will check thiamine, B12, folate, will fractionate bilirubin repeat LFTs. Will discuss strategies that could help with possible dumping syndrome.
-
-
Thank you for consultation and allowing me to participate in the patient's care. Please call the diesel mechanic construction GI physician during the after hours with any questions or concerns.
[2024-03-05] MEDS: CARDIZEM CD 240 MG PO (18:17)
[2024-03-05] MEDS: LOPRESSOR 100 MG PO (18:17)
--- NOTE | 2024-03-05 19:21 | PTCARENOTE ---
Received pt from ED. AOx3, c/o mild nausea, 4mg IV Zofran given. NPO. NS @ 100ml/hr via R FA PIV. Admission completed.
[2024-03-05] MEDS: NSS (PRESERVATIVE FREE) 10 ML IV (20:41)
[2024-03-05] MEDS: MELATONIN 5 MG PO (23:45)
[2024-03-05] MEDS: TOPROL XL PO (23:52)
[2024-03-06] MEDS: ZOFRAN 4 MG IV ×4 (02:28→20:53)
[2024-03-06] MEDS: NSS 1000 IV ×3 (04:32→23:12)
[2024-03-06] MEDS: COMPAZINE 5 MG IV (04:43)
[2024-03-06] MEDS: SYNTHROID 100 MCG PO (05:51)
--- NOTE | 2024-03-06 06:24 | W.PN.GI.CBS2 ---
Today's Communication / Plan
-
Please see assessment and plan for details.
Assessment / Plan
-
1. Nausea/vomiting/diarrhea: Unclear etiology, progressive over the past year with extensive workup as described above including labs, stool studies, EGD, colonoscopy previous ultrasound, cholecystectomy. I wonder if there could be some component
of dumping syndrome adding to her symptoms, which can be a delayed complication post duodenal switch, or other vitamin deficiency from malabsorption. At this point will await labs as ordered including B12, folate, and repeat LFTs with fractionated
bilirubin. Will start clear liquid diet and continue supportive care including PPI. If feeling better is okay to advance diet from GI standpoint later today. If the above is negative and no better could plan repeat EGD tomorrow.
Subjective
Subjective
Date of Service: March 06, 2024
Patient feeling about the same, still with nausea, though no vomiting, significant Renzo pain, fever or chills.
Objective
Data Reviewed
Laboratory Data:
Laboratory Results
Magnesium 2.0 mg/dl (1.6-2.3) 03/05/24 08:05
Total Bilirubin 2.5 mg/dl (0.2-1.3) H 03/05/24 08:05
AST 36 U/L (14-36) 03/05/24 08:05
ALT 24 U/L (0-35) 03/05/24 08:05
Alkaline Phosphatase 76 U/L (38-126) 03/05/24 08:05
Lipase 178 U/L (23-300) 03/05/24 08:05
Vital Signs and I&O:
Vital Signs
Temp Pulse Resp BP Pulse Ox
98.1 F 67 18 146/84 96
03/05/24 23:08 03/05/24 23:08 03/05/24 23:08 03/05/24 23:08 03/06/24 00:29
I&O
03/04/24 03/05/24 03/06/24
06:59 06:59 06:59
Intake Total 460 / 460
Balance 460 / 460
Physical Exam
Physical Exam
General: NAD
Abdomen: normal bowel sounds, soft, no tenderness, no masses or bruits, no ascites
[2024-03-06 07:00] VITALS: BP 170/95
[2024-03-06] MEDS: PROTONIX IV 40 MG IV ×2 (07:57→20:53)
[2024-03-06] MEDS: NSS (PRESERVATIVE FREE) 10 ML IV ×2 (07:57→20:54)
[2024-03-06] MEDS: CELEXA 40 MG PO (07:58)
[2024-03-06] MEDS: TOPROL XL 100 MG PO ×2 (07:58→20:54)
[2024-03-06 08:37] LABS: % Basophils 0.2 % (0-2); % Eosinophils 0.2 % (0-6); % Immature Granulocytes 0.7 % (0-0.5); % Monocytes 8.5 % (1.7-9.3); % Neutrophils 73.4 % (42.2-75.2); Absolute Immature Granulocytes 0.1 10^3/uL (0-0.05); Absolute Lymphocytes 1.4 10^3/uL (1.2-3.4); Absolute Monocytes 0.7 10^3/uL (0.1-0.6); Absolute Neutrophils 5.9 10^3/uL (1.4-6.5); Hematocrit 38.4 % (37.0-47.0); Hemoglobin 13.5 g/dL (12.0-16.0); Mean Corp Hgb Conc. 35.2 g/dL (33.0-37.0); Mean Corpuscular Hgb 32.5 pg (27.0-31.0); Mean Corpuscular Volume 92.5 fL (81.0-99.0); Mean Platelet Volume 10.5 fL (7.4-10.4); Nucleated Red Blood Cells % 0 %; Platelet Count 204 10^3/uL (130-400); Red Blood Cell Count 4.15 10^6/uL (4.20-5.40); Red Cell Dist. Width 11.7 % (11.5-14.5); White Blood Cell Count 8.1 10^3/uL (4.8-10.8)
[2024-03-06 09:03] LABS: ALT (SGPT) 21 U/L (0-35); AST (SGOT) 30 U/L (14-36); Albumin 3.9 g/dl (3.5-5.0); Alkaline Phosphatase 63 U/L (38-126); Blood Urea Nitrogen 7 mg/dl (7-17); Calcium 8.8 mg/dl (8.4-10.2); Carbon Dioxide 25 mmol/L (22-30); Chloride 100 mmol/L (98-107); Direct Bilirubin 0.4 mg/dl (0.0-0.4); Estimated Creatinine Clearance 83 ml/min; Glucose 132 mg/dl (70-99); Potassium 3.4 mmol/L (3.5-5.1); Sodium 137 mmol/L (135-145); Total Protein 6.4 g/dl (6.3-8.2); eGFR > 60.00
[2024-03-06 10:02] LABS: Folate > 20.0 ng/ml (2.76-20); Vitamin B12 > 1000 pg/ml (239-931)
[2024-03-06 10:25] VITALS: BMI 23.7
--- NOTE | 2024-03-06 11:11 | W.PN.HOSP.TC ---
Today's Communication/Plan
-
Possible EGD tomorrow
Assessment / Plan
Assessment / Plan
Acute on chronic chronic nausea vomiting/associated diarrhea with weight loss concerning gastroparesis flare
The patient history of gastric sleeve surgery/duodenal switch in 2018
Patient has history of GERD/hiatal hernia
-Unclear diagnosis possibly gastroparesis
-CT abdomen pelvis shows no evidence of bowel obstruction
-Colonoscopy from July showed polyps, diverticulosis,
-EGD from July showed no notable abnormalities apart from hiatal hernia
GI consulted, currently on clear liquid diet
GI recommending vitamin B12 and folic acid level which came back normal
Continue Protonix 40 IV twice daily
C. difficile negative
Plan for EGD in am
Left groin pseudoaneurysm
-Denies any pain at the site
-CT scan shows that is rising from the anterior margin of the left common femoral vein rather than the left common femoral artery. There is evidence for active bleeding
-ER discussed with vascular and patient already scheduled for surgical repair in 03/22
-Vascular surgery can be consulted if necessary
Paroxysmal atrial fibrillation/flutter prior ablation
-Continue diltiazem
-Xarelto has been on hold since left groin pseudoaneurysm was discovered
Hypertrophic cardiomyopathy with ICD
Essential hypertension
-Continue metoprolol
Hypothyroidism
-Continue levothyroxine
Anxiety/depression
-Continue citalopram
CODE STATUS: Full code
DVT prophylaxis: SCD
Diet: Clear diet- NPO after midnight
Anticipated Discharge: Within 24 hours
Subjective/Interval History
-
Date of Service: March 06, 2024
Patient seen and examined at bedside, denies any chest pain or shortness of breath, no abdominal pain, patient still complaining of nausea, no diarrhea or constipation.
Seen by GI today and plan for clear liquid diet today and possible EGD tomorrow.
Vitamin B12 >1000.
Folic acid >20
Objective Data
-
Labs:
Laboratory Results
03/06/24
07:24
WBC 8.1
Hgb 13.5
Hct 38.4
Plt Count 204
Sodium 137
Potassium 3.4 L
Chloride 100
Carbon Dioxide 25
BUN 7
Creatinine 0.5 L
Glucose 132 H
Calcium 8.8
Total Bilirubin 2.0 H
AST 30
ALT 21
Alkaline Phosphatase 63
Vital Signs:
Vital Signs
Temp Pulse Resp BP Pulse Ox
98.2 F 71 12 170/95 94
03/06/24 07:00 03/06/24 07:00 03/06/24 07:00 03/06/24 07:00 03/06/24 07:00
I&O
03/05/24 03/06/24 03/07/24
06:59 06:59 06:59
Intake Total 1660 / 1660
Balance 1660 / 1660
Physical Exam
-
General: Well Developed and No Apparent Distress
HEENT: Normocephalic, Atraumatic and Moist Mucous Membranes
Respiratory: Clear to Auscultation
Cardiac: Regular Rhythm and S1/S2; Negative Murmur, Rub or Gallop
GI: Soft, Nontender, Nondistended and Normal Bowel Sounds; Negative Organomegaly
Rectal: Deferred by Provider
Musculoskeletal: No Clubbing, No Cyanosis and No Edema
Skin: Negative Rash
Neuro: Nonfocal/Grossly Intact
[2024-03-06 13:04] VITALS: BP 155/76
[2024-03-06] MEDS: KCL 40 MEQ PO (13:05)
[2024-03-06] MEDS: CARDIZEM CD 240 MG PO (13:05)
--- NOTE | 2024-03-06 14:24 | CM ---
Patient seen bedside.
IA completed.
Patient lives with spouse in a 2 story home.
Independent prior to admission.
No hx VN.
Works and drives.
Denies home care needs.
PCP: Dr Brandt
Pharmacy: [facility]
Plan: home no needs anticipated.
[2024-03-06 15:00] VITALS: BP 185/99
[2024-03-06] MEDS: MELATONIN 5 MG PO (22:09)
--- NOTE | 2024-03-06 22:28 | PTCARENOTE ---
Received pt awake, alert, oriented, without c/o pain, ambulating independently around room and hallway. Pt medicated for persistent nausea. Skin intact, tolerating clear liquids. IVF continued. Plan of care reviewed with pt. Pt currently resting
comfortably in bed. Pt requested Melatonin for HS. Order obtained.
[2024-03-06 23:00] VITALS: BP 174/97
[2024-03-07] VITALS (14 sets, daily range): BP systolic 18–177; BP diastolic 77–109; BMI 31.1
[2024-03-07] MEDS: ZOFRAN 4 MG IV ×2 (02:46→08:42)
[2024-03-07] MEDS: SYNTHROID 100 MCG PO (05:44)
--- NOTE | 2024-03-07 05:56 | W.PN.UPDATE ---
Update Note
Progress Note Update
Patient with persistent symptoms, still nauseated, really no significant improvement. Will plan EGD today.
[2024-03-07] MEDS: NSS 1000 IV ×2 (08:40→18:05)
[2024-03-07] MEDS: NSS (PRESERVATIVE FREE) 10 ML IV ×2 (08:41→20:08)
[2024-03-07] MEDS: CELEXA 40 MG PO (08:41)
[2024-03-07] MEDS: TOPROL XL 100 MG PO ×2 (08:41→20:08)
[2024-03-07] MEDS: PROTONIX IV 40 MG IV ×2 (08:42→20:07)
--- NOTE | 2024-03-07 10:01 | W.PN.HOSP.TC ---
Today's Communication/Plan
-
EGD today
Assessment / Plan
Assessment / Plan
Acute on chronic chronic nausea vomiting/associated diarrhea with weight loss concerning gastroparesis flare
The patient history of gastric sleeve surgery/duodenal switch in 2019
Patient has history of GERD/hiatal hernia
-Unclear diagnosis possibly gastroparesis
-CT abdomen pelvis shows no evidence of bowel obstruction
-Colonoscopy from July showed polyps, diverticulosis,
-EGD from July showed no notable abnormalities apart from hiatal hernia
GI consulted, currently on clear liquid diet
GI recommending vitamin B12 and folic acid level which came back normal
Continue Protonix 40 IV twice daily
C. difficile negative
Plan for EGD in am
03/07
For EGD today.
Consider Reglan
Left groin pseudoaneurysm
-Denies any pain at the site
-CT scan shows that is rising from the anterior margin of the left common femoral vein rather than the left common femoral artery. There is evidence for active bleeding
-ER discussed with vascular and patient already scheduled for surgical repair in 03/22
-Vascular surgery can be consulted if necessary
Paroxysmal atrial fibrillation/flutter prior ablation
-Continue diltiazem
-Xarelto has been on hold since left groin pseudoaneurysm was discovered
Hypertrophic cardiomyopathy with ICD
Essential hypertension
-Continue metoprolol
Hypothyroidism
-Continue levothyroxine
Anxiety/depression
-Continue citalopram
Hypokalemia.
Replace K and keep monitor
CODE STATUS: Full code
DVT prophylaxis: SCD
Diet: Clear diet- NPO for EGD
Anticipated Discharge: Within 24 hours
Subjective/Interval History
-
Date of Service: March 07, 2024
Patient seen and examined at bedside, denies any chest pain or shortness of breath, no abdominal pain, still with nausea, for EGD today.
Denies diarrhea.
Objective Data
-
Vital Signs:
Vital Signs
Temp Pulse Resp BP Pulse Ox
98.8 F 70 16 155/85 95
03/07/24 08:06 03/07/24 08:06 03/07/24 08:06 03/07/24 08:41 03/07/24 08:06
I&O
03/06/24 03/07/24 03/08/24
06:59 06:59 06:59
Intake Total 1660 / 1660 5089 / 5089
Balance 1660 / 1660 5089 / 5089
Physical Exam
-
General: Well Developed and No Apparent Distress
HEENT: Normocephalic, Atraumatic and Moist Mucous Membranes
Respiratory: Clear to Auscultation
Cardiac: Regular Rhythm and S1/S2; Negative Murmur, Rub or Gallop
GI: Soft, Nontender, Nondistended and Normal Bowel Sounds; Negative Organomegaly
Rectal: Deferred by Provider
Musculoskeletal: No Clubbing, No Cyanosis and No Edema
Skin: Negative Rash
Neuro: Nonfocal/Grossly Intact
[2024-03-07] MEDS: ATARAX 25 MG PO ×2 (14:50→22:19)
[2024-03-07] MEDS: CARDIZEM CD 240 MG PO (15:24)
[2024-03-07] MEDS: KLOR-CON 20 MEQ PO (15:25)
--- NOTE | 2024-03-07 15:30 | CON.CAR ---
Addendum entered and electronically signed by Kwadwo Caldwell MD 03/07/24 17:30:
I saw and examined the patient.
The Human Factors Specialist's note was reviewed and I agree with the note.
Comment: Briefly, 63-year-old woman past medical history of atrial fibrillation with prior PVI in May of this year which was unfortunately complicated by pseudoaneurysm who is now presenting with nausea/vomiting and diarrhea for which she is
undergoing GI workup. Around the time of her EGD earlier today there was concern that she developed an episode of atrial fibrillation and we are asked to evaluate the patient.
By my review of telemetry as well as twelve-lead ECGs she has been in sinus rhythm with PACs, I do not see any atrial fibrillation on the monitor
Patient has permanent pacemaker and this was interrogated and based on this she has been maintaining sinus rhythm, no atrial fibrillation detected
Would continue p.o. diltiazem and metoprolol
Oral anticoagulation has been on hold due to pseudoaneurysm
Stable cardiac status, we will sign off
Please recall as needed
Case discussed with patient's primary stopper grinder
Original Note:
Consultation
Consultation Request
Date/Time Consultation Requested: 03/07/24
Date/Time Consultation Performed: 03/07/24
Requesting Provider: Dr. Fortune
Performing Provider: Dr. Caldwell
Reason for Consultation: Possible Afib on tele
Medical History
-
History of Present Illness:
Patient came to [facility] on Monday with acute on chronic N/V/D and was admitted, cardiology is now consulted for abnormal telemetry. Patient has a h/o duodenal switch in 2019. Patient had EGD today that was unremarkable. Tele was abnormal and there was
concern for Afib. Patient with a h/o pAfib and previous PVI 05/2023. Patient was doing well and no issues until 02/2024 when she had increased left groin pain and swelling and was found to have a pseudoaneurysm. Patient had an unsuccessful thrombin
injection x2 as outlined above and was seen by vascular surgery and is scheduled for operative repair 03/22/24. In the meantime her Xarelto has been on hold until after surgery. Patient denies palpitations and feels like her HR is not going as fast
as it normally would if she was in Afib. She has been taking her usual doses of Cardizem CD2 140 mg daily and Toprol-XL 100 mg BID.
PMH:
Unclear etiology chronic N/V/D
Paroxysmal Afib
s/p PVI 05/2023
Left groin pseudoaneurysm
s/p thrombin injection 02/09/24
s/p thrombin injection 02/22/24
scheduled for operative repair 03/22/24
Chronic Xarelto on hold until operative repair of left groin pseudoaneurysm
[employer] ICD
History of bariatric surgery
History of anxiety
Obesity
Past Medical History
Past Medical History: Other (in HPI)
Past Surgical History: Appendectomy, Cardiac (PVI 05/2023, left groin pseudoaneurysm with thrombin injection 02/09/24 and 02/22/24), Cholecystectomy, Gynecological (uterine ablation) and Orthopedic ([facility]ETTE)
Social History
Tobacco: Non-Smoker
Alcohol: Other (2-3 times a week)
Drug: None
Personal:
Living: With Family
Family History
Family History: CAD and Hypertension
Allergies / Home Medications
Allergy/AdvReac Type Severity Reaction Status Date / Time
bacitracin Allergy POSITIVE Verified 03/05/24 07:52
REACTION
ON ALLERGY
TEST
�Medication �Instructions �Recorded �Confirmed �Type
citalopram 40 mg tablet 40 mg PO DAILY Mental 12/21/20 03/05/24 History
Health/Anxiety
metoprolol succinate 100 mg 100 mg PO BID Heart Failure 01/29/21 03/05/24 History
tablet,extended release 24 hr
levothyroxine 100 mcg tablet 100 mcg PO DAILY Thyroid 03/13/23 03/05/24 History
acetaminophen 500 mg tablet 1,000 mg (2 x 500 mg) PO Q6HPRN 08/11/23 03/05/24 Rx
(Tylenol Extra Strength) PRN mild pain #1 tab
diltiazem HCl 240 mg 240 mg PO DAILY@1400 Blood Pressure 08/13/23 03/05/24 History
capsule,extended release 24 hr,
controlled (DILT-XR)
prochlorperazine maleate 10 mg 10 mg PO Q8HPRN PRN nausea and 03/05/24 03/05/24 History
tablet (Compazine) vomiting
Review of Systems
-
History Source: Patient and Family (2 family members bedside)
All other systems: Negative unless noted
Physical Exam
Vital Signs
Temp Pulse Resp BP Pulse Ox
97.8 F 68 18 175/98 98
03/07/24 14:27 03/07/24 14:27 03/07/24 14:27 03/07/24 14:27 03/07/24 14:27
GEN: NAD. AAOx3
HEENT: EOMI, MMM
LUNGS: CTA B/L, no wheezes or rales
CV: SR with PACs on tele. Reg, S1/S2, no murmur
ABD: soft, BS+, NT, ND
EXT: No clubbing, cyanosis, lesions or edema B/L
NEURO: Gross non-focal
SKIN: Warm, dry and pink. No rash
Lab Results
03/06/24 07:24
03/06/24 07:24
Impression / Plan
-
PCP: Dr. Brandt
Primary Analytics Specialist: Dr. Smith
Impression:
Admitted with recurrent N/V/D
Unclear etiology acute on chronic N/V/D
Frequent PACs
Paroxysmal Afib
s/p PVI 05/2023
Left groin pseudoaneurysm
s/p thrombin injection 02/09/24
s/p thrombin injection 02/22/24
scheduled for operative repair 03/22/24
Chronic Xarelto on hold until operative repair of left groin pseudoaneurysm
Medtronic ICD
History of bariatric surgery
History of anxiety
Obesity
ECHO 12/31/19: EF 59%, severe LVH with septal measurement of 2.0 cm, stage II diastolic dysfunction, indexed LA volume significantly abnormal, mild MR, trace TR, PAP 24 mmHg
Plan:
-Patient came to [facility] on Monday with acute on chronic N/V/D and was admitted, cardiology is now consulted for abnormal telemetry. Patient has a h/o duodenal switch in 2018. Patient had EGD today that was unremarkable. Tele was abnormal and there
was concern for Afib. Patient with a h/o pAfib and previous PVI 05/2023. Patient was doing well and no issues until 02/2024 when she had increased left groin pain and swelling and was found to have a pseudoaneurysm. Patient had an unsuccessful
thrombin injection x2 as outlined above and was seen by vascular surgery and is scheduled for operative repair 03/22/24. In the meantime her Xarelto has been on hold until after surgery. Patient denies palpitations and feels like her HR is not going
as fast as it normally would if she was in Afib. She has been taking her usual doses of Cardizem CD2 140 mg daily and Toprol-XL 100 mg BID.
-Tele and ECG reviewed by me and appear to be SR with PACs.
-[facility] express device interrogation performed by me and patient is not in Afib. She has not had any Afib since before her ablation.
-Patient updated on results of device check and was happy to hear she is in fact in SR.
-Cardiology recommendations include continuing her usual doses of Cardizem CD2 140 mg daily and Toprol-XL 100 mg BID.
-As noted above her outpatient dose of Xarelto 20 mg daily will have to remain on hold until she has operative repair of her persistent left groin pseudoaneurysm.
[2024-03-08 03:48] VITALS: BP 147/78
[2024-03-08] MEDS: SYNTHROID 100 MCG PO (05:30)
[2024-03-08] MEDS: ZOFRAN 4 MG IV (06:09)
[2024-03-08 07:31] LABS: Blood Urea Nitrogen 4 mg/dl (7-17); Calcium 9.2 mg/dl (8.4-10.2); Carbon Dioxide 29 mmol/L (22-30); Chloride 98 mmol/L (98-107); Estimated Creatinine Clearance 100 ml/min; Glucose 99 mg/dl (70-99); Potassium 3.6 mmol/L (3.5-5.1); Sodium 139 mmol/L (135-145); eGFR > 60.00
[2024-03-08 07:38] VITALS: BP 157/92
--- NOTE | 2024-03-08 09:44 | PTCARENOTE ---
Noted 10 beat VT on telemetry; pt asymptomatic. VSS. Dr. Fortune notified. Will continue to monitor.
--- NOTE | 2024-03-08 09:54 | W.PN.GI.CBS2 ---
Today's Communication / Plan
-
OK to [place] home today and OP f/u
Assessment / Plan
-
1. Nausea/vomiting/diarrhea: Unclear etiology, progressive over the past year with extensive workup including labs, stool studies, EGD, colonoscopy previous ultrasound, cholecystectomy. Workup was also negative for celiac and negative for
microscopic colitis in the past. CT also neg for obstruction on admission. repeat EGD 03/07 was also unremarkable other than mild gastritis and hiatal hernia. B12 and folic acid are also normal. there could be some component of dumping syndrome
adding to her symptoms, which can be a delayed complication post duodenal switch. stool studies are negative for infection. No further diarrhea and tolerating diet. Nausea better with Zofran continue as needed.
Elevated indirect bilirubin most likely has Gilbert syndrome
okay to [place] home today and follow-up with Dr. Lopez as outpatient. will sign off and will be available as needed
Subjective
Subjective
Date of Service: March 08, 2024
She says that yesterday she felt good and did not require Zofran but today morning she had mild nausea which responded to Zofran. No vomiting tolerating diet
Objective
Data Reviewed
Laboratory Data:
Laboratory Results
03/06/24 07:24
03/08/24 05:54
Laboratory Results
Magnesium 2.0 mg/dl (1.6-2.3) 03/05/24 08:05
Total Bilirubin 2.0 mg/dl (0.2-1.3) H 03/06/24 07:24
AST 30 U/L (14-36) 03/06/24 07:24
ALT 21 U/L (0-35) 03/06/24 07:24
Alkaline Phosphatase 63 U/L (38-126) 03/06/24 07:24
Lipase 178 U/L (23-300) 03/05/24 08:05
Vital Signs and I&O:
Vital Signs
Temp Pulse Resp BP Pulse Ox
97.6 F 65 18 157/92 97
03/08/24 07:38 03/08/24 07:38 03/08/24 07:38 03/08/24 07:38 03/08/24 09:43
I&O
03/07/24 03/08/24 03/09/24
06:59 06:59 06:59
Intake Total 5089 / 5089 480 / 480
Balance 5089 / 5089 480 / 480
03/07/24 EGD
Impression: - Normal esophagus.
- Small hiatal hernia.
- Erythematous mucosa in the antrum. Biopsied.
- Widely patent duodenal switch, characterized by
healthy appearing mucosa was found.
Physical Exam
Physical Exam
Cardiology: Normal Sinus Rhythm
Pulmonary: Clear
GI: Soft, Non Distended, Non Tender and Normal Bowel Sounds
[2024-03-08] MEDS: TOPROL XL 100 MG PO (10:23)
[2024-03-08] MEDS: CELEXA 40 MG PO (10:23)
[2024-03-08] MEDS: KCL 40 MEQ PO (10:23)
[2024-03-08] MEDS: PROTONIX IV 40 MG IV (10:24)
[2024-03-08] MEDS: FLUSH (NSS) 1 FLUSH IV (10:25)
[2024-03-08] MEDS: NSS (PRESERVATIVE FREE) 10 ML IV (10:25)
--- NOTE | 2024-03-08 11:44 | W.PN.HOSP.TC ---
Today's Communication/Plan
-
DC today
Assessment / Plan
Assessment / Plan
Acute on chronic chronic nausea vomiting/associated diarrhea with weight loss concerning gastroparesis flare
The patient history of gastric sleeve surgery/duodenal switch in 2018
Patient has history of GERD/hiatal hernia
-Unclear diagnosis possibly gastroparesis
-CT abdomen pelvis shows no evidence of bowel obstruction
-Colonoscopy from July showed polyps, diverticulosis,
-EGD from July showed no notable abnormalities apart from hiatal hernia
GI consulted, currently on clear liquid diet
GI recommending vitamin B12 and folic acid level which came back normal
Continue Protonix 40 IV twice daily
C. difficile negative
Plan for EGD in am
03/07
For EGD today.
03/08
EGD shows mild gastritis and hiatal hernia.
GI recommends Zofran.
Left groin pseudoaneurysm
-Denies any pain at the site
-CT scan shows that is rising from the anterior margin of the left common femoral vein rather than the left common femoral artery. There is evidence for active bleeding
-ER discussed with vascular and patient already scheduled for surgical repair in 03/22
-Vascular surgery can be consulted if necessary
Paroxysmal atrial fibrillation/flutter prior ablation
-Continue diltiazem
-Xarelto has been on hold since left groin pseudoaneurysm was discovered
Hypertrophic cardiomyopathy with ICD
Essential hypertension
-Continue metoprolol
Hypothyroidism
-Continue levothyroxine
Anxiety/depression
-Continue citalopram
Hypokalemia.
Replace K and keep monitor
CODE STATUS: Full code
DVT prophylaxis: SCD
Diet: Clear diet- NPO for EGD
Anticipated Discharge: Today
Subjective/Interval History
-
Date of Service: March 08, 2024
Patient seen and examined at bedside, denies any chest pain or shortness of breath, no abdominal pain, still with mild nausea, no vomiting, no diarrhea or constipation.
Concern for A-fib yesterday, seen by cardiology, no evidence of A-fib.
Patient had a run of 10 beats of nonsustained V. tach today, potassium replaced.
Magnesium 2.0
Objective Data
-
Labs:
Laboratory Results
03/08/24
05:54
Sodium 139
Potassium 3.6
Chloride 98
Carbon Dioxide 29
BUN 4 L
Creatinine 0.6
Glucose 99
Calcium 9.2
Vital Signs:
Vital Signs
Temp Pulse Resp BP Pulse Ox
97.6 F 65 18 157/92 97
03/08/24 07:38 03/08/24 10:23 03/08/24 07:38 03/08/24 10:23 03/08/24 09:43
I&O
03/07/24 03/08/24 03/09/24
06:59 06:59 06:59
Intake Total 5089 / 5089 480 / 480
Balance 5089 / 5089 480 / 480
Physical Exam
-
General: Well Developed and No Apparent Distress
HEENT: Normocephalic, Atraumatic and Moist Mucous Membranes
Respiratory: Clear to Auscultation
Cardiac: Regular Rhythm and S1/S2; Negative Murmur, Rub or Gallop
GI: Soft, Nontender, Nondistended and Normal Bowel Sounds; Negative Organomegaly
Rectal: Deferred by Provider
Musculoskeletal: No Clubbing, No Cyanosis and No Edema
Skin: Negative Rash
Neuro: Nonfocal/Grossly Intact
--- NOTE | 2024-03-08 11:49 | W.DCSUMMARY ---
Discharge Summary
Discharge Data
Date of Admission: 03/05/24
Date of Discharge: 03/08/24
-
Pending Results: No
Hospital Course
Patient admitted to the hospital was uncontrolled nausea and vomiting, seen by GI, folic acid/vitamin B12 came back normal.
Underwent EGD which shows mild gastritis and hiatal hernia.
GI recommending Zofran.
During hospitalization concerning for A-fib, cardiology consulted but no evidence of A-fib.
At episode of nonsustained V. tach 10 beats, potassium replaced.
Acute on chronic chronic nausea vomiting/associated diarrhea with weight loss concerning gastroparesis flare
The patient history of gastric sleeve surgery/duodenal switch in 2018
Patient has history of GERD/hiatal hernia
-Unclear diagnosis possibly gastroparesis
-CT abdomen pelvis shows no evidence of bowel obstruction
-Colonoscopy from July showed polyps, diverticulosis,
-EGD from July showed no notable abnormalities apart from hiatal hernia
GI consulted, currently on clear liquid diet
GI recommending vitamin B12 and folic acid level which came back normal
Continue Protonix 40 IV twice daily
C. difficile negative
Plan for EGD in am
03/07
For EGD today.
03/08
EGD shows mild gastritis and hiatal hernia.
GI recommends Zofran.
Left groin pseudoaneurysm
-Denies any pain at the site
-CT scan shows that is rising from the anterior margin of the left common femoral vein rather than the left common femoral artery. There is evidence for active bleeding
-ER discussed with vascular and patient already scheduled for surgical repair in 03/22
-Vascular surgery can be consulted if necessary
Paroxysmal atrial fibrillation/flutter prior ablation
-Continue diltiazem
-Xarelto has been on hold since left groin pseudoaneurysm was discovered
Hypertrophic cardiomyopathy with ICD
Essential hypertension
-Continue metoprolol
Hypothyroidism
-Continue levothyroxine
Anxiety/depression
-Continue citalopram
Hypokalemia.
Replace K and keep monitor
CODE STATUS: Full code
DVT prophylaxis: SCD
Diet: Clear diet- NPO for EGD
Anticipated Discharge: Today
Discharge Plan
-
Patient Disposition: Home (Routine Discharge)
Discharge Diagnosis/Procedures: Nausea and vomiting
Condition: Good
Diet: Low Residue
Activity: No restrictions
Driving Restrictions: As prior to admission
Bathing Restrictions: None
Referrals:
Sarah Beth Brandt MD [Family Provider] -
Marlene Lopez MD [Active] - in one to two weeks
Prescriptions:
New
ondansetron 4 mg tablet,disintegrating
4 mg PO ACHSPRN PRN (Reason: nausea and vomiting) 30 Days Qty: 60 0RF
Continued
citalopram 40 MG tablet
40 mg PO DAILY
metoprolol succinate 100 MG tablet extended release 24 hr
100 mg PO BID
levothyroxine 100 mcg Tablet
100 mcg PO DAILY
acetaminophen [Tylenol Extra Strength] 500 mg tablet
1,000 mg PO Q6HPRN PRN (Reason: mild pain) Qty: 1 0RF
diltiazem HCl [DILT-XR] 240 mg Capsule,Ext.Rel 24h Degradable
240 mg PO DAILY@1400
prochlorperazine maleate [Compazine] 10 mg tablet
10 mg PO Q8HPRN PRN (Reason: nausea and vomiting)
Discharge Orders:
Discharge Patient (As Directed); Ordered 03/08/24
Ordered By: Raymond Fortune
Discharge Date and Time
Print Language: ZAMBIAN
[2024-03-08 11:57] VITALS: BP 177/97
--- NOTE | 2024-03-08 11:59 | CM ---
Chart reviewed. Pt to d/c today
No CM needs at this time
Plan: Home; no needs
--- NOTE | 2024-03-08 15:20 | W.PN.CARDCBS ---
Today's Communication / Plan
-
Continue beta-corey and calcium channel corey
Replete K > 4 Mg > 2
Stable cardiac status
Impression / Plan
-
PCP: Dr. Brandt
[facility] [facility]: Dr. Smith
Impression:
Admitted with recurrent N/V/D
Unclear etiology acute on chronic N/V/D
Frequent PACs
Paroxysmal Afib
s/p PVI 05/2023
Left groin pseudoaneurysm
s/p thrombin injection 02/09/24
s/p thrombin injection 02/22/24
scheduled for operative repair 03/22/24
Chronic Xarelto on hold until operative repair of left groin pseudoaneurysm
[employer] ICD
History of bariatric surgery
History of anxiety
Obesity
ECHO 12/31/19: EF 59%, severe LVH with septal measurement of 2.0 cm, stage II diastolic dysfunction, indexed LA volume significantly abnormal, mild MR, trace TR, PAP 24 mmHg
Plan:
-Patient came to [facility] on Monday with acute on chronic N/V/D and was admitted, cardiology is now consulted for abnormal telemetry. Patient has a h/o duodenal switch in 2018. Patient had EGD today that was unremarkable. Tele was abnormal and there
was concern for Afib. Patient with a h/o pAfib and previous PVI 05/2023. Patient was doing well and no issues until 02/2024 when she had increased left groin pain and swelling and was found to have a pseudoaneurysm. Patient had an unsuccessful
thrombin injection x2 as outlined above and was seen by vascular surgery and is scheduled for operative repair 03/22/24. In the meantime her Xarelto has been on hold until after surgery. Patient denies palpitations and feels like her HR is not going
as fast as it normally would if she was in Afib. She has been taking her usual doses of Cardizem CD2 140 mg daily and Toprol-XL 100 mg BID.
-Tele and ECG reviewed by me shows SR with PACs as well as episode of nonsustained ventricular tachycardia this morning which was asymptomatic
-[employer] express device interrogation showed she has not had any Afib since her most recent ablation
-Remains asymptomatic from a cardiac standpoint
-Would replete electrolytes
-Continue her usual doses of Cardizem CD2 140 mg daily and Toprol-XL 100 mg BID.
-As noted above her outpatient dose of Xarelto 20 mg daily will have to remain on hold until she has operative repair of her persistent left groin pseudoaneurysm.
Stable cardiac status
Discussed with hospitalist
Progress Note - [facility] [facility]
Subjective
Date of Service: March 08, 2024
We are asked to reevaluate the patient for nonsustained ventricular tachycardia seen on telemetry
Overall patient tells me she is feeling better with her abdominal symptoms, having some relief from Zofran.
No cardiac complaints at this time including no palpitations, lightheadedness/dizziness or syncope.
Objective
Labs:
03/06/24 07:24
03/08/24 05:54
Labs
Hgb 13.5 g/dL (12.0-16.0) 03/06/24 07:24
Hct 38.4 % (37.0-47.0) 03/06/24 07:24
Plt Count 204 10^3/uL (130-400) 03/06/24 07:24
Sodium 139 mmol/L (135-145) 03/08/24 05:54
Potassium 3.6 mmol/L (3.5-5.1) 03/08/24 05:54
BUN 4 mg/dl (7-17) L 03/08/24 05:54
Creatinine 0.6 mg/dL (0.6-1.0) 03/08/24 05:54
Glucose 99 mg/dl (70-99) 03/08/24 05:54
Vital Signs and I&O:
Vital Signs
Temp Pulse Resp BP Pulse Ox
97.5 F 59 18 177/97 96
03/08/24 11:57 03/08/24 11:57 03/08/24 11:57 03/08/24 11:57 03/08/24 11:57
Vital Signs
Temp Pulse Resp BP Pulse Ox
97.5 F 59 18 177/97 96
03/08/24 11:57 03/08/24 11:57 03/08/24 11:57 03/08/24 11:57 03/08/24 11:57
Intake & Output
03/06/24 03/07/24 03/08/24 03/09/24
06:59 06:59 06:59 06:59
Intake Total 1660 / 1660 5089 / 5089 480 / 480 480 / 480
Balance 1660 / 1660 5089 / 5089 480 / 480 480 / 480
Physical Exam
Physical Exam
Gen: NAD, AAOx3
HEENT: NC/AT, sclera anicteric
Neck: No JVD
CV: RRR, NL s1/s2, no M/R/G
Lungs: CTAB
Abd: S/ND
Ext: No LE edema
Skin: Warm, dry
Neuro: Non-focal
[2024-03-08 17:47] LABS: Vitamin B1, Whole Blood 157 nmol/L (70-180)
== END 2024-03-08 15:02 | disposition home or self-care (01) | DRG 392 ==
LOC: 4 EAST ACU 15:04
PROVIDERS: Emergency Medicine; ADMITTING PHYSICIAN Hospitalist; ATTENDING PHYSICIAN General Practice; CONSULT PHYSICIAN Internal Medicine Cardiovascular Disease; CONSULT PHYSICIAN Internal Medicine Gastroenterology; EMERGENCY PHYSICIAN Emergency Medicine; FAMILY PHYSICIAN Internal Medicine
PROC: 0DB78ZX Excision of Stomach, Pylorus, Via Natural or Artificial Opening Endoscopic, Diagnostic (ICD-10-PCS; 2024-03-07)
DX: K31.84 Gastroparesis (principal); I42.2 Other hypertrophic cardiomyopathy; I47.20 Ventricular tachycardia, unspecified; K29.70 Gastritis, unspecified, without bleeding; K44.9 Diaphragmatic hernia without obstruction or gangrene; E03.9 Hypothyroidism, unspecified; E87.6 Hypokalemia; F32.A Depression, unspecified; F41.9 Anxiety disorder, unspecified; I25.10 Atherosclerotic heart disease of native coronary artery without angina pectoris; I10 Essential (primary) hypertension; I87.8 Other specified disorders of veins; E66.9 Obesity, unspecified; I48.0 Paroxysmal atrial fibrillation; Z98.84 Bariatric surgery status; J45.909 Unspecified asthma, uncomplicated; Z88.3 Allergy status to other anti-infective agents; Z87.891 Personal history of nicotine dependence; Z79.890 Hormone replacement therapy; Z79.899 Other long term (current) drug therapy; K31.89 Other diseases of stomach and duodenum; Z68.31 Body mass index [BMI] 31.0-31.9, adult; Z96.643 Presence of artificial hip joint, bilateral; Z95.810 Presence of automatic (implantable) cardiac defibrillator
CPT/HCPCS: 88305; 74177; 80048; 80053; 82248; 82607; 82746; 83690; 83735; 84425; 85025; 87045; 87046; 87324; 87427; 87449; 88342; 93005; 96361; 96374; 96375; 96376; 99285; Q9967

== ENCOUNTER 2024-03-22 11:16 | Inpatient (IN) | payer BC, SELFPAY ==
[2024-03-22] VITALS (21 sets, daily range): BP systolic 109–150; BP diastolic 57–91; BMI 30.4; BMI 31.1
--- NOTE | 2024-03-22 10:25 | ED.GENMED ---
History of Present Illness
General
Chief Complaint: Post Operative Problem(s)
Source: patient
Time Seen by Provider: 03/22/24 10:16
History of Present Illness
History of Present Illness:
63-year-old female with past medical history of atrial fibrillation, cardiomyopathy status post defibrillator placed who developed a pseudoaneurysm of the left groin following a cardiac ablation done earlier this year which has been attempted to be
repaired with IR treatments that have failed and now having continued pain and symptoms. Patient has been seen and evaluated by vascular surgery and patient decided to come to the ER today for further evaluation. No new symptoms, color changes to
the extremity, focal weakness or numbness. Patient merely notes continued pain despite attempted measures to control the pain medications as well as procedures.
Past History
Past History
ED Past Medical History: Arrthythmia, Asthma, CHF, Hypothyroidism and Psychiatric
ED Past Surgical History: Appendectomy, Cardiac, Cholecystectomy, Gynecological and Other
Social History
Tobacco: Former smoker
Alcohol: Former
Drug: None
Personal:
Living: with family
Employment: Employed
Family History
Family History: Negative Sudden
Review of Systems
Review of Systems
All Other Systems: ROS reviewed and negative except as documented in HPI and ROS
Phy Exam
Physical Exam
Physical Exam:
GENERAL: Alert , in no apparent distress
EYE: conjunctiva clear
Head: Normocephalic atraumatic
NECK: Supple,
ENT: mmm.
LUNGS: no acute respiratory distress
NEUROLOGICAL: Alert and oriented
SKIN: Warm and dry, skin intact.
MUSCULOSKELETAL: well perfused.
PSYCH: Normal and appropriate interaction.
Scores
Heart Failure Risk
Heart Failure Risk Score: Not Applicable
Heart Score for Chest Pain Patients
STEMI patient?: Not applicable
Withdrawal Assessment of Alcohol
Withdrawal Assessment Completed?: Not applicable
Course
Orders/Labs/Results
Orders:
Orders
12/20/24 Breakfast
NPO
Allow oral meds: Yes
Allow clear liquids: No
03/22/24 08:45
CeFAZolin 2 GRAM [Ancef] 2 grams in 10 ml IV PRE PROCEDURE
03/22/24 10:30
Chlorhexidine Oral Rinse 0.12% [Peridex 0.12% Oral Rinse] 15 ml PO ONCE ONE
Mupirocin [Bactroban 2% Ointment] See Dose Instructions NASAL ONCE ONE
03/22/24 10:45
Type+Screen Routine
BMP [Basic Metabolic Panel] Routine
CBC/No Diff [Complete Blood Count/No Diff] Routine
INR [Prothrombin Time] Routine
PTT Routine
03/22/24 11:09
Admit Patient As Directed
Co-Sign Provider:
Level of Care: Inpatient admission
Assign to:: ICU
Physician / Group: vasc
Diagnosis: femoral pseudoanurysm
Reason for Hospitalization: Femoral PSA repair
Expected length of stay greater than two midnights?: Yes
ELOS- Estimated Length of Stay in days: 3
I certify the patient meets the requirements for IP care: Yes
Code Status As Directed
Resuscitation Status: Full Code
Acetaminophen [Tylenol] 650 mg PO Q4HPRN PRN
Bisacodyl [Dulcolax] 10 mg RECTAL DAILYPRN PRN
Morphine Sulfate 2 mg IV Q2HPRN PRN
Oxycodone [Roxicodone] 5 mg PO Q4HPRN PRN
Vital Signs As Directed
Frequency: Per unit guidelines
PRN Pain Medication Management As Directed
May give lesser potent ordered pain med per pt: Yes
preference::
Protocol:: Medication orders for pain may be administered in a
manner that supports deferring to patient preference
when the pt is:
- Requesting an ordered lesser potent pain medication.
Least to most potent pain medications are defined
as: acetaminophen < NSAID < tramadol < opioids
(morphine, oxycodone, hydromorphone).
- Requesting a lesser dose of the same medication IF
ORDERED.
- Requesting a less intrusive route of administration
if both routes are prescribed by the provider (PO <
IV).
DX Deep Vein Thrombosis Video Routine
03/23/24 08:00
Heparin 5,000 units SC Q8
Abnormal Lab Results
03/22/24
10:45
MCH 32.3 H pg
(27.0-31.0)
Creatinine 0.5 L mg/dL
(0.6-1.0)
Glucose 102 H mg/dl
(70-99)
03/22/24 10:45
03/22/24 10:45
Vital Signs
Initial and Last Documented VS:
Initial Vital Signs
Temp Pulse Resp BP Pulse Ox
98.2 F 65 18 136/86 98
03/22/24 08:30 03/22/24 08:30 03/22/24 08:30 03/22/24 08:30 03/22/24 08:30
Last Documented Vital Signs
Temp Pulse Resp BP Pulse Ox
97.6 F 65 22 129/66 96
03/22/24 11:23 03/22/24 11:23 03/22/24 11:23 03/22/24 11:23 03/22/24 11:23
MDM/Problems Addressed
Differential Diagnosis Includes:
Continued pseudoaneurysm, no signs to suggest infection, less concern for an acute musculoskeletal etiology
MDM/Problems Addressed:
63-year-old female presenting to the ER for continued pain due to known pseudoaneurysm of the left groin. Vascular surgery aware and given the repeated failed treatments with interventional radiology vascular surgery is recommending open repair in
the OR. Plan for procedure to be done today. Vascular surgery requesting preoperative labs. They will facilitate the remainder of the management. Patient and spouse in agreement with this plan
Chronic conditions affecting care: Other (Previous surgery/ablation)
*Pulse Oximetry
Patient hypoxic: no
*Critical Care Note
Total Time (30-74mins, 75-104mins- exclusive of procedures): Not Applicable
Data Reviewed
Review of Other/Old Records Reveals: Labs, Records and Operative Reports
Source: patient
Patient Management
Social determinants of health affecting care: Living situation and Strong social support
Discussion with other providers: Choral Teacher
Escalation/DeEscalation of care consider admission/obs:
Vascular surgery accepts patient to their service and will perform open repair of left groin pseudoaneurysm today
ED Attending Note
-
Portions of this chart may have been created with voice recognition software.� Occasional wrong word or��sound alike� substitutions may have occurred due to the inherent limitations of voice recognition software.
Discharge Plan
Departure
Patient Disposition: OR
Date of Disposition: 03/22/24
Time of Disposition: 10:25
Presentation/result/management discussed w/ accepting MD/DO: Dr. Wisam Anguiano
Discharge Problem:
Pseudoaneurysm
Interventions
Interventions:
*Risk Screen - Suicide Last Done: 03/22/24 08:30
*Neglect/Abuse Screening Last Done: 03/22/24 08:30
*Nursing Disposition Last Done: 03/22/24 10:28
Discharge Date and Time
Discharge Date/Time: 03/22/24 10:28
--- NOTE | 2024-03-22 10:28 | EDRN ---
Call received from aquatic laborer and requests pt transport to aquatic laborer at this time. Pt still in [facility] when call received. Pt brought back to room 13 immediately and seen by Vik Lorenzo, then transported directly to [facility] via w/c.
[2024-03-22] MEDS: BACTROBAN 2% OINTMENT 1 APPLIC NASAL (10:48)
[2024-03-22] MEDS: PERIDEX 0.12% ORAL RINSE 15 ML PO (10:48)
[2024-03-22 11:05] LABS: INR 0.88; PT 12.3 Sec (11.4-14.6)
[2024-03-22 11:06] LABS: APTT 28.6 Sec (23.4-35.0)
[2024-03-22 11:07] LABS: Hematocrit 40.5 % (37.0-47.0); Hemoglobin 13.9 g/dL (12.0-16.0); Mean Corp Hgb Conc. 34.3 g/dL (33.0-37.0); Mean Corpuscular Hgb 32.3 pg (27.0-31.0); Mean Platelet Volume 10.3 fL (7.4-10.4); Platelet Count 292 10^3/uL (130-400); Red Blood Cell Count 4.31 10^6/uL (4.20-5.40); Red Cell Dist. Width 11.7 % (11.5-14.5); White Blood Cell Count 7.9 10^3/uL (4.8-10.8)
[2024-03-22 11:22] LABS: Blood Urea Nitrogen 10 mg/dl (7-17); Calcium 9.3 mg/dl (8.4-10.2); Carbon Dioxide 26 mmol/L (22-30); Chloride 104 mmol/L (98-107); Glucose 102 mg/dl (70-99); Potassium 4.5 mmol/L (3.5-5.1); Sodium 136 mmol/L (135-145); eGFR > 60.00
--- NOTE | 2024-03-22 11:43 | W.PN.UPDATE ---
Addendum entered and electronically signed by Wisam Anguiano III, MD 03/22/24 14:36:
This patient was seen and examined with GARCÍA Avery. I agree with the history and physical exam as well as the assessment and plan. I have the following additions:
Patient well-known to me
Presented with increasing pain in the left groin
Known chronic left femoral pseudoaneurysm status post several failed percutaneous thrombin injection attempts
OR today for exploration and surgical repair of the left femoral pseudoaneurysm
Technical aspects of this procedure were discussed with the patient and her in detail. Benefits and rationale for this approach were discussed with her and her in detail. Operative risks were discussed with her and her in
detail including but not limited to bleeding, infection, wound healing complications, heart attack, stroke and need for additional procedures.
They expressed a clear understanding of our conversation and agreed to proceed with surgery as detailed above
Signed:
Wisam Anguiano III, MD
[facility]
[phone] (mous)
Original Note:
Update Note
Progress Note Update
Vascular H&P noted below, seen in our office <1month ago.
Plan:
-OR today for repair of left groin pseudoaneurysm with Dr Anguiano
-Admit to ICU for monitoring
-NPO, CBC, BMP, PTT, PT/INR, Type/screen
-D/w Dr Anguiano
[2024-03-22] MEDS: TRANSDERM-SCOP 1 PATCH TRANSDERM (11:54)
[2024-03-22] MEDS: EMEND 40 MG PO (11:55)
--- NOTE | 2024-03-22 14:20 | CON.INTV ---
Consultation
Consultation Request
Date/Time Consultation Requested: 03/22/2024 - 134
Date/Time Consultation Performed: 03/22/2024 - 1407
Requesting Provider: GARCÍA Avery
Performing Provider: Yemi Tobias MD
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
Medical History
-
Chief Complaint: Elective repair of left groin pseudoaneurysm
History of Present Illness:
63-year-old female former smoker with a past medical history of A-fib, asthma, anxiety/depression, history of shingles, hypothyroidism, anemia, GERD and lumbar spine degenerative disc disease who presents with elective repair of left femoral
pseudoaneurysm. Patient known to the vascular surgery service with last visit on 02/26/[address] Anguiano. Previous attempts were made to inject her pseudoaneurysm with thrombin but unfortunately this failed. It is suspected that the
pseudoaneurysm had evolved since May 2023 when she had a PVI procedure. Risks and benefits of vascular intervention were reviewed and she agreed to procedure. Today she underwent a left femoral exploration with resection of chronic
pseudoaneurysm capsule, with ligation and division of left saphenofemoral junction and ligation of feeding arterial branches. There were no complications with EBL 20 cc. She was transferred to the ICU postoperatively and wire loop machine operator services
consulted for additional management/recommendations.
When I saw the patient, she was resting in bed in no acute distress. Patient's , Bill, at bedside and all questions were answered. Patient's heart rate is 69, BP 142/82 and saturating 97% on 2 L/min nasal cannula. She has a mild amount of
pain at the postoperative site in her left groin, otherwise denies shortness of breath, chest pain, VERDIN, abdominal pain, nausea, fevers or chills.
PMHx: A-fib, asthma, history of panic attacks, HZV, obesity, hypothyroidism, anemia, anxiety/depression, DDD spine (lumbar spine), GERD
PSHx: Appendectomy, uterine ablation, carpal tunnel release, left knee arthroscopy, duodenal switch, left hip replacement, right hip replacement, multiple cardioversions, cardiac ablation, cholecystectomy
Past Medical History
Past Medical History: Other (Above as per HPI)
Past Surgical History: Other (Above as per HPI)
Social History
Tobacco: Former Smoker (Quit >10 years ago)
Alcohol: Occasional
Drug: None
Personal:
Living: With Family (=Bill)
Family History
Family History: CAD (Father, mother, paternal grandfather, paternal grandmother + paternal grandmother)
Allergies / Home Medications
Allergies
Allergy/AdvReac Type Severity Reaction Status Date / Time
bacitracin Allergy POSITIVE Verified 03/22/24 08:33
REACTION
ON ALLERGY
TEST
Home Medications
�Medication �Instructions �Recorded �Confirmed �Last Taken �Type
citalopram 40 mg tablet 40 mg PO DAILY Mental 12/21/20 03/22/24 03/22/24 08:00 History
Health/Anxiety
metoprolol succinate 100 mg 100 mg PO BID Heart Failure 01/29/21 03/22/24 03/22/24 08:00 History
tablet,extended release 24 hr
levothyroxine 100 mcg tablet 100 mcg PO DAILY Thyroid 03/13/23 03/22/24 03/22/24 08:00 History
acetaminophen 500 mg tablet 1,000 mg (2 x 500 mg) PO Q6HPRN 08/11/23 03/22/24 03/21/24 14:00 Rx
(Tylenol Extra Strength) PRN mild pain #1 tab
diltiazem HCl 240 mg 240 mg PO DAILY@1400 Blood Pressure 08/13/23 03/22/24 03/21/24 14:00 History
capsule,extended release 24 hr,
controlled (DILT-XR)
ondansetron 4 mg disintegrating 4 mg PO ACHSPRN PRN nausea and 03/08/24 03/22/24 Unknown Rx
tablet vomiting 30 days #60 tabs
calcium 600 mg (as 2 cap PO BID 03/22/24 03/22/24 03/21/24 20:00 History
carbonate)-vitamin D3 10 mcg (400
unit) capsule
iron 30 mg PO DAILY 03/22/24 03/22/24 03/21/24 20:00 History
multivitamin-zinc oxide 7.5 mg 1 tab PO TID 03/22/24 03/22/24 03/21/24 20:00 History
chewable tablet
omeprazole 20 mg capsule,delayed 20 mg PO BID 03/22/24 03/22/24 03/22/24 08:00 History
release
oxycodone 5 mg tablet 5 mg PO Q4HPRN PRN moderate pain 03/22/24 Unknown Rx
#10 tabs
zinc 50 mg capsule 50 mg PO DAILY 03/22/24 03/22/24 03/21/24 08:00 History
Review of Systems
-
History Source: Patient
All other systems: Negative unless noted
Vitals / Labs / Diagnostic Testing
Vital Signs
Temp Pulse Resp BP Pulse Ox
97.1 F 66 16 132/75 98
03/22/24 14:25 03/22/24 15:00 03/22/24 14:55 03/22/24 15:00 03/22/24 15:00
Lab Data
03/22/24 14:43
03/22/24 14:43
Laboratory Results
03/22/24 03/22/24
10:45 14:43
PT 12.3
INR 0.88
APTT 28.6 28.7
Diagnostic Testing:
Physical Exam
-
HEENT: Normocephalic and Anicteric
Cardiovascular: S1/S2, Rub (n) and Peripheral Edema (negative)
Respiratory: Wheeze (negative), Rales (negative), Rhonchi (negative) and Non-Labored Respirations
GI: Soft, Distended (Abdominal obesity), Non Tender and Normal Bowel Sounds
Neurology: AO x 3 and Tremors (negative)
Skin: Warm, Dry and Other (DANO drain at right groin)
General: Respiratory Distress (negative), Comfortable, Pain (left groin site), Fever (negative) and Chills (negative)
Assessment
-
Assessment: 63-year-old female former smoker with a past medical history of A-fib, asthma, anxiety/depression, history of shingles, hypothyroidism, anemia, GERD and lumbar spine degenerative disc disease who presents with elective repair of left
femoral pseudoaneurysm. Patient known to the vascular surgery service with last visit on 02/26/[address] Anguiano. Previous attempts were made to inject her pseudoaneurysm with thrombin but unfortunately this failed. It is suspected that the
pseudoaneurysm had evolved since May 2023 when she had a PVI procedure. Risks and benefits of vascular intervention were reviewed and she agreed to procedure. Today she underwent a left femoral exploration with resection of chronic
pseudoaneurysm capsule, with ligation and division of left saphenofemoral junction and ligation of feeding arterial branches. There were no complications with EBL 20 cc. She was transferred to the ICU postoperatively and wire loop machine operator services
consulted for additional management/recommendations.
Chronic conditions STERILE PROCESSING TECH: A-fib, asthma, history of panic attacks, HZV, obesity, hypothyroidism, anemia, anxiety/depression, DDD spine (lumbar spine), GERD
Impression:
#Persistent left groin pseudoaneurysm after failed percutaneous thrombin injection attempts s/p femoral exploration with resection of chronic pseudoaneurysm capsule with ligation and division of the left saphenofemoral junction and feeding arterial
branches (POD #0)
#History of paroxysmal A-fib/a flutter s/p PVI in May 2023
#Anxiety/depression
#GERD
#Paroxysmal A-fib currently off Xarelto in the setting of left groin pseudoaneurysm
#Hypothyroidism
#Anemia
#Lumbar spine degenerative disc disease
#Obesity (BMI: 31)
Plan:
Postoperative surgical intensive care unit monitoring
Supplemental oxygen as needed to maintain SpO2 >90-94%
prn nebulized bronchodilators
Incentive spirometry encouraged 10x per hour for at least 4 hrs a day
Aspiration precautions
Pain control
Neuro and vascular checks per protocol
Maintain MAP>65
Replete electrolytes with K>4, Mg>2
Maintain euglycemia with goal BG 140-180
Vascular surgery following-correspondence and operative notes reviewed
Transfuse blood products as needed to keep Hb>7g/dL, and plt>50k (given post-operative status)
Continue levothyroxine
DVT prophylaxis: HSQ
Early nutrition
Early mobilization
Critical care statement: A total of 44 minutes of critical care time was provided for this patient today. This includes management of unstable vital signs, evaluation of the patient at bedside, reviewing the patient's pertinent medical records
including radiographs, microbiology, laboratory evaluations, and discussion with primary team, consultants, pharmacy, nutrition, physical therapy, case management, charge nurse, critical care nursing, and respiratory therapy.
--- NOTE | 2024-03-22 14:32 | OR.RPT ---
Operative Report
Operative Report
Date of Operation: 03/22/2024
Pre Op Diagnosis: Persistent left groin pseudoaneurysm after failed percutaneous thrombin injection attempts.
Post Op Diagnosis: Persistent left groin pseudoaneurysm after failed percutaneous thrombin injection attempts
Procedure:
1. Left femoral exploration with resection of chronic pseudoaneurysm capsule
2. Ligation and division of left saphenofemoral junction
3. Ligation of feeding arterial branches
Surgeon: Wisam Anguiano III, MD
Science Specialist: Jacob Chappell MD PhD, PGY2
Anesthesia: General
Complications: None
Estimated Blood Loss: 20 cc
History and Indications for Procedure: 63-year-old female with persistent left femoral pseudoaneurysm following EP procedure in May 2023. She had undergone several attempts at percutaneous thrombin injection that failed. She presented to the
emergency department today with worsening pain in her left groin. She was taken to the OR for exploration.
Procedure in Detail: Lianna Gusman was correctly identified and placed supine on the operating table. Under ultrasound guidance the pseudoaneurysm was marked in the left groin for incision planning. Her abdomen, pelvis and bilateral groins were
prepped and draped in the usual sterile fashion. She received preoperative antibiotics. A timeout procedure was performed with the nursing and anesthesia staff confirming the patient's identity as well as the nature and laterality of the procedure.
A vertical incision was made through the skin elvin. Careful sharp dissection and electrocautery were used to expose the pseudoaneurysm. The pseudoaneurysm had a chronic thickened capsule associated with it. Circumferential dissection was
performed with sharp dissection and electrocautery around the chronic pseudoaneurysm capsule. Lymphatics were divided between silk ties and metal clips. Several arterial branches were identified on the inferior surface of the pseudoaneurysm
capsule and these were ligated and divided between silk ties. The pseudoaneurysm capsule was intimately associated with the proximal saphenous vein and saphenofemoral junction. The saphenofemoral junction was clearly exposed and a clamp was placed
on the proximal saphenous vein, just off of the saphenofemoral junction. The more distal saphenous vein was ligated with a silk tie. The proximal saphenous vein was divided leaving the clamp on the saphenofemoral junction stump. The
pseudoaneurysm capsule was then removed and sent to pathology. The saphenofemoral junction stump was ligated with a 2-0 silk suture ligature. The stump was closely inspected and hemostasis was confirmed.
I then sharply dissected around the femoral vein and found no other sites of bleeding. Similarly I dissected and exposed the common femoral artery and femoral bifurcation immediately adjacent to the pseudoaneurysm capsule and found no other sites
of bleeding.
Satisfied with this result we then concluded the procedure. The wound was irrigated with saline solution. Hemostasis was achieved in the wound bed. The wound was closed in multiple layers and a sterile bryant dressing was applied.
The patient tolerated the procedure well and was taken to the recovery room in stable condition.
Attestation: I was present and responsible for the entire procedure
Signed:
Wisam Anguiano III, MD
[facility]
[phone] (cell)
[2024-03-22 14:51] LABS: Hematocrit 37.3 % (37.0-47.0); Hemoglobin 12.7 g/dL (12.0-16.0); Mean Corpuscular Hgb 32.4 pg (27.0-31.0); Mean Corpuscular Volume 95.2 fL (81.0-99.0); Mean Platelet Volume 9.8 fL (7.4-10.4); Platelet Count 243 10^3/uL (130-400); Red Blood Cell Count 3.92 10^6/uL (4.20-5.40); Red Cell Dist. Width 11.8 % (11.5-14.5); White Blood Cell Count 7.8 10^3/uL (4.8-10.8)
[2024-03-22 15:02] LABS: APTT 28.7 Sec (23.4-35.0)
[2024-03-22 15:14] LABS: Blood Urea Nitrogen 9 mg/dl (7-17); Calcium 8.7 mg/dl (8.4-10.2); Carbon Dioxide 24 mmol/L (22-30); Chloride 105 mmol/L (98-107); Estimated Creatinine Clearance 98 ml/min; Glucose 112 mg/dl (70-99); Potassium 4.5 mmol/L (3.5-5.1); Sodium 135 mmol/L (135-145); eGFR > 60.00
[2024-03-22] MEDS: NSS 1000 IV (15:38)
[2024-03-22] MEDS: ROXICODONE 5 MG PO ×2 (15:53→20:12)
[2024-03-22] MEDS: ANCEF 10 IV ×2 (17:01→19:36)
--- NOTE | 2024-03-22 19:21 | PTCARENOTE ---
1600 arrived from vascular OR/PACU via bed, settled in room, see assessment, vascular checks performed. Fluids infuse. Complete bath. family present. 1700 orders clarified for tylenol PM, no other change. pleasant and cooperative. IV fluids,
PICOT dressing maintained. skin warm and dry. 1800 ate dinner, appetite fair, no nausea, med for pain see MAR.
[2024-03-22] MEDS: PROTONIX 40 MG PO (19:45)
[2024-03-22] MEDS: CARDIZEM CD 240 MG PO (19:46)
[2024-03-22] MEDS: OSCAL 500 + D 1000 MG PO (19:46)
[2024-03-22] MEDS: TOPROL XL 100 MG PO (19:46)
--- NOTE | 2024-03-22 20:20 | PTCARENOTE ---
Assumed care of pt at 1900. Pt is A/O x4, pleasant and cooperative with care. Neurovascular checks done in tandem with offgoing RN and are Q1 hours ongoing, see neurovascular flowsheet for full details. DANO dressing to left groin C/D/I. SR 70s on
monitor, SpO2 95-96% on RA. Physical assessment completed, see nursing shift assessment flowsheet for full details. Medicated for pain with PRN oxycodone, see EMAR for details. Call lemons and personal items within reach.
[2024-03-22] MEDS: TYLENOL 650 MG PO (22:04)
[2024-03-22] MEDS: BENADRYL 25 MG PO (22:05)
[2024-03-23] VITALS (10 sets, daily range): BP systolic 108–146; BP diastolic 61–88; BMI 31.2
--- NOTE | 2024-03-23 00:30 | PTCARENOTE ---
Midnight physical assessment and neurovascular assessments unchanged. Pt has been sleeping since receiving Tylenol + Benadryl around 2200. SR 60s on monitor, occasionally dipping down into HR of 50s.
--- NOTE | 2024-03-23 04:07 | PTCARENOTE ---
No change in assessment. SR 60s/SB 50s on monitor.
[2024-03-23 05:43] LABS: Hematocrit 37.2 % (37.0-47.0); Mean Corp Hgb Conc. 34.9 g/dL (33.0-37.0); Mean Corpuscular Hgb 32.3 pg (27.0-31.0); Mean Corpuscular Volume 92.3 fL (81.0-99.0); Mean Platelet Volume 10.3 fL (7.4-10.4); Platelet Count 243 10^3/uL (130-400); Red Blood Cell Count 4.03 10^6/uL (4.20-5.40); Red Cell Dist. Width 11.4 % (11.5-14.5); White Blood Cell Count 6.4 10^3/uL (4.8-10.8)
[2024-03-23 06:03] LABS: Blood Urea Nitrogen 6 mg/dl (7-17); Calcium 9.1 mg/dl (8.4-10.2); Carbon Dioxide 26 mmol/L (22-30); Chloride 103 mmol/L (98-107); Estimated Creatinine Clearance 99 ml/min; Glucose 152 mg/dl (70-99); Potassium 4.8 mmol/L (3.5-5.1); Sodium 134 mmol/L (135-145); eGFR > 60.00
[2024-03-23] MEDS: ROXICODONE 5 MG PO ×2 (06:08→10:59)
[2024-03-23] MEDS: SYNTHROID 100 MCG PO (06:08)
--- NOTE | 2024-03-23 08:22 | W.PN.INTV ---
Today's Communication / Plan
Recommendations
Pain control
Encourage incentive parameter use
Up OOB as tolerated
Bowel regimen while on narcotics
Outpatient follow-up with vascular surgery
Patient is being prepared for discharge home today. No additional recommendations at this time. Millinery Copyist/Pulmonary service will now sign off. Please reconsult if there are any additional questions/concerns, or if patient's respiratory status
deteriorates.
Assessment
-
Assessment: 63-year-old female former smoker with a past medical history of A-fib, asthma, anxiety/depression, history of shingles, hypothyroidism, anemia, GERD and lumbar spine degenerative disc disease who presents with elective repair of left
femoral pseudoaneurysm. Patient known to the vascular surgery service with last visit on 02/26/[address] Anguiano. Previous attempts were made to inject her pseudoaneurysm with thrombin but unfortunately this failed. It is suspected that the
pseudoaneurysm had evolved since May 2023 when she had a PVI procedure. Risks and benefits of vascular intervention were reviewed and she agreed to procedure. Today she underwent a left femoral exploration with resection of chronic
pseudoaneurysm capsule, with ligation and division of left saphenofemoral junction and ligation of feeding arterial branches. There were no complications with EBL 20 cc. She was transferred to the ICU postoperatively and news assistant services
consulted for additional management/recommendations.
Chronic conditions DIRECTOR INPATIENT HEADACHE PROGRAM: A-fib, asthma, history of panic attacks, HZV, obesity, hypothyroidism, anemia, anxiety/depression, DDD spine (lumbar spine), GERD
Impression:
#Persistent left groin pseudoaneurysm after failed percutaneous thrombin injection attempts s/p femoral exploration with resection of chronic pseudoaneurysm capsule with ligation and division of the left saphenofemoral junction and feeding arterial
branches (POD #1)
#History of paroxysmal A-fib/a flutter s/p PVI in May 2023
#Anxiety/depression
#GERD
#Paroxysmal A-fib currently off Xarelto in the setting of left groin pseudoaneurysm
#Hypothyroidism
#Anemia
#Lumbar spine degenerative disc disease
#Obesity (BMI: 31)
Plan:
Postoperative surgical intensive care unit monitoring
Supplemental oxygen as needed to maintain SpO2 >90-94%
prn nebulized bronchodilators � not currently bronchospastic
Incentive spirometry encouraged 10x per hour for at least 4 hrs a day
Aspiration precautions
Pain control
Neuro and vascular checks per protocol
Maintain MAP>65
Replete electrolytes with K>4, Mg>2
Maintain euglycemia with goal BG 140-180
Vascular surgery following-correspondence and operative notes reviewed
Transfuse blood products as needed to keep Hb>7g/dL, and plt>50k (given post-operative status)
Continue levothyroxine
DVT prophylaxis: HSQ
Early nutrition
Early mobilization
Patient is being prepared for discharge home today. No additional recommendations at this time. Millinery Copyist/Pulmonary service will now sign off. Thank you for allowing us to be involved in the care of this patient. Please reconsult if there are
any additional questions/concerns, or if patient's respiratory status deteriorates.
Total time spent today was 42 minutes for this encounter. Time includes reviewing laboratory test/imaging results, reviewing pertinent medical records, obtaining and reviewing medical history, performing an appropriate exam, ordering medications,
tests and procedures. Time also includes documentation of this encounter, coordinating patient care and communicating with other healthcare professionals. Total time does not include separately billed tests performed on this date of service.
Subjective Dataa
Subjective Data
Date of Service:
Date of Service: March 23, 2024
Chief Complaint: Millinery Copyist Follow Up
Subjective:
Patient seen and evaluated today at bedside. She feels well, walking around the unit in no acute distress. BP 146/88 and heart rate 73. She is on room air saturating 94%. Has mild left groin pain but denies left lower extremity numbness or
tingling. She also denies shortness of breath, chest pain, fevers or chills.
Review of Systems
General: Other (Negative unless mentioned above)
Objective Data
Data Reviewed
Vital Signs / I&O / Oxygen:
Vital Signs
Temp Pulse Resp BP Pulse Ox
99.0 F 81 10 146/88 94
03/23/24 07:45 03/23/24 08:00 03/23/24 08:00 03/23/24 08:00 03/23/24 08:00
Intake and Output
03/22/24 03/23/24 03/24/24
06:59 06:59 06:59
Intake Total 1800 / 1800
Output Total 1510 / 1510
Balance 290 / 290
SaO2 94
Nasal Cannula flow liters per 2
minute
Physical Exam
General: Respiratory Distress (negative), Comfortable, Chills (negative) and Sweats (negative)
HEENT: Normocephalic and Anicteric
Cardiovascular: S1-S2, Rub (negative) and Peripheral Edema (negative)
Respiratory: Clear, Wheeze (negative), Crackles (negative), Rhonchi (negative), Non-Labored Respirations and Stridor (negative)
GI: Soft, Non Distended, Non Tender and Normal Bowel Sounds
Neurology: AO x 3 and Tremors (negative)
Skin: Warm, Dry, Cyanosis (negative) and Jaundice (negative)
Labs/Micro/Reports
Lab Data
03/23/24 05:25
03/23/24 05:25
Laboratory Results
03/22/24 03/22/24
10:45 14:43
PT 12.3
INR 0.88
APTT 28.6 28.7
[2024-03-23] MEDS: OSCAL 500 + D 1000 MG PO (08:24)
[2024-03-23] MEDS: CELEXA 40 MG PO (08:25)
[2024-03-23] MEDS: TOPROL XL 100 MG PO (08:25)
[2024-03-23] MEDS: ZINC 50 MG PO (08:25)
[2024-03-23] MEDS: PROTONIX 40 MG PO (08:25)
[2024-03-23] MEDS: HEPARIN 5000 UNITS SC (08:25)
--- NOTE | 2024-03-23 09:36 | PTCARENOTE ---
Rec'd pt at 0700. Pt AAOx3, follows commands, CALDERON. Monitor SR. Lungs CTA. +BS, abd soft/nt. Left groin DANO dressing C/D/I, functioning properly. Legs pink/warm. +DP/PT pulses. Pt OOB to bathroom with supervision, sitting in recliner chair at this
time. Annmarie galvez'd ~0845.
[2024-03-23] MEDS: SENOKOT-S 2 TABLET PO (10:59)
--- NOTE | 2024-03-23 11:14 | W.PN.VS ---
Today's Communication / Plan
-
D/C home with DANO in place
Assessment/Plan
-
63F L Groin PSA repair
Stable for D/C home with DANO in place
Follow up in clinic with Dr. Gomes
Subjective Data
-
Date of Service: March 23, 2024
POD 1 L PSA repair
Some discomfort to groin, but overall well controlled pain
No left foot pain, numbness, weakness
Walked the hallways without issue
Voided after removal of gomes
Objective Data
-
Vital Signs
Temp Pulse Resp BP Pulse Ox
99.0 F 81 10 146/88 94
03/23/24 07:45 03/23/24 08:00 03/23/24 08:00 03/23/24 08:00 03/23/24 08:00
Intake and Output
03/22/24 03/23/24 03/24/24
06:59 06:59 06:59
Intake Total 1800 / 1800
Output Total 1510 / 1510
Balance 290 / 290
Intake:
Oral fluids 1320 / 1320
IV fluids (Total) 480 / 480
Nss 1,000 ml @ 80 mls/hr IV . 480 / 480
[id number] [facility] Rx#:[id number]
Output:
UrineShrutiey 1510 / 1510
Lab Results
03/23/24 05:25
03/23/24 05:25
Calcium 9.1 mg/dl (8.4-10.2) 03/23/24 05:25
Physical Exam
-
L groin soft
DANO in place
L 2+ PT
Foot warm, motor/sensory intact
--- NOTE | 2024-03-23 12:57 | PTCARENOTE ---
Pt voided without issue after gomes removal. Tele pack applied on pt and pt ambulating in room and hallway. Discharge orders rec'd, reviewed with pt. IV's and tele pack dc'd. Pt discharged to home at approx 1245.
--- NOTE | 2024-03-23 13:20 | CM ---
Patient discharged and left building prior to CM visit. Per nursing patient with no discharge needs. CM will continue to follow for discharge planning needs.
Plan; discharged home with family
== END 2024-03-23 13:47 | disposition home or self-care (01) | DRG 253 ==
LOC: ICU 11:16
PROVIDERS: Nurse Practitioner Acute Care; ADMITTING PHYSICIAN Surgery Vascular Surgery; CONSULT PHYSICIAN Internal Medicine Critical Care Medicine; EMERGENCY PHYSICIAN Emergency Medicine; FAMILY PHYSICIAN Internal Medicine
PROC: 06BQ0ZZ Excision of Left Saphenous Vein, Open Approach (ICD-10-PCS; 2024-03-22)
PROC: 04QL0ZZ Repair Left Femoral Artery, Open Approach (ICD-10-PCS; 2024-03-22)
DX: I72.4 Aneurysm of artery of lower extremity (principal); I42.9 Cardiomyopathy, unspecified; E03.9 Hypothyroidism, unspecified; I48.0 Paroxysmal atrial fibrillation; E66.9 Obesity, unspecified; J45.909 Unspecified asthma, uncomplicated; D64.9 Anemia, unspecified; F41.9 Anxiety disorder, unspecified; F32.A Depression, unspecified; K21.9 Gastro-esophageal reflux disease without esophagitis; M51.369 Other intervertebral disc degeneration, lumbar region without mention of lumbar back pain or lower extremity pain; Z95.810 Presence of automatic (implantable) cardiac defibrillator; Z87.891 Personal history of nicotine dependence; Z68.31 Body mass index [BMI] 31.0-31.9, adult; Z96.643 Presence of artificial hip joint, bilateral
CPT/HCPCS: 88304; 35141; 37618; 71045; 80048; 85027; 85610; 85730; 86850; 86900; 86901; 93005; 99284

== ENCOUNTER → 2024-04-01 14:10 | Outpatient (REF) | payer BC, SELFPAY | LOC: RAD 14:10 | PROVIDERS: ATTENDING PHYSICIAN Registered Nurse; FAMILY PHYSICIAN Internal Medicine | DX: I72.9 Aneurysm of unspecified site (principal) | CPT/HCPCS: 93926 ==

== ENCOUNTER → 2024-06-17 07:50 | Outpatient (REF) | payer BC, SELFPAY | LOC: RAD 07:50 | PROVIDERS: ATTENDING PHYSICIAN Nurse Practitioner; FAMILY PHYSICIAN Internal Medicine | DX: R11.2 Nausea with vomiting, unspecified (principal) | CPT/HCPCS: 78264; A9541 ==

== ENCOUNTER → 2024-07-01 08:55 | Outpatient (REF) | payer BC, SELFPAY | LOC: RAD 08:55 | PROVIDERS: ATTENDING PHYSICIAN Nurse Practitioner; FAMILY PHYSICIAN Internal Medicine | DX: R11.2 Nausea with vomiting, unspecified (principal) | CPT/HCPCS: 74246 ==